=== PATIENT | male | born 1960 | race Caucasian/White ===

== ENCOUNTER 2017-02-25 12:37 | Emergency (ER) | payer MEDICAID, SELFPAY | END 2017-02-25 13:36 | disposition home or self-care (01) | PROVIDERS: Emergency Provider Emergency Medicine; Family Provider Family Medicine; Visit Provider Emergency Medicine | DX: S80.11XA Contusion of right lower leg, initial encounter (principal); W22.8XXA Striking against or struck by other objects, initial encounter; Y92.89 Other specified places as the place of occurrence of the external cause; Z79.82 Long term (current) use of aspirin; F17.210 Nicotine dependence, cigarettes, uncomplicated; I10 Essential (primary) hypertension | CPT/HCPCS: 73590; 99282 ==

== ENCOUNTER → 2017-09-24 06:46 | Outpatient (CLI) | payer MEDICAID, SELFPAY ==
--- NOTE | 2017-09-24 06:48 | NM_ITS ---
History and Indications: Hypertension, diabetes, hyperlipidemia, tobacco use, chest pain and shortness of breath Procedure: Patient exercised on Steve protocol 6 minutes and 30 seconds, resting heart rate was 61 bpm, resting blood pressure 111/74, with exercise maximum heart rate achieved was 118 bpm which is equal to 72% of the maximum predicted heart rate and a blood pressure was 145/72. Test was started due to shortness of breath patient denied any complained of chest pain. Patient has adequate exercise capacity achieved 7mets of workload on treadmill, the blood pressure response to exercise was adequate, patient did not achieve the target heart rate. Electrocardiogram: Resting electrocardiogram showed sinus rhythm, with exercise there is less than 1.5 ST segment depression noted from the baseline EKG. The EKG portion of the exercise Myoview is nondiagnostic. Cardiac stress and resting SPECT images: Cardiac stress and rest SPECT images were obtained using technetium 99 Myoview 32.2 mCi at stress and 10.9 mCi at rest, gated SPECT further analysis of segmental wall motion and calculation of the ejection fraction also done. Cardiac stress and rest images show a fixed defect in the anterior wall with normal contractility on the gated SPECT is likely secondary to soft tissue attenuation from the diaphragm, no reversible ischemia seen. Computer derived ejection fraction is 49% with no obvious regional wall motion abnormality. Right ventricle is normal size and contractility. Conclusion: 1. The EKG portion of the exercise Myoview is nondiagnostic as patient did not achieve the target heart rate, patient has adequate exercise capacity achieved 7mets of workload on treadmill, the blood pressure response to exercise was adequate. Test was stopped due to shortness of breath patient denied any complained of chest pain. 2. No obvious scintigraphic evidence of reversible ischemia seen, computer derived ejection fraction is 49% with no obvious regional wall motion abnormality, right ventricle is normal size and contractility.
[2017-09-24 07:26] LABS: Blood Urea Nitrogen 7 mg/dL (7-18); Creatinine,Serum 1.08 mg/dL (0.70-1.30); Estimated Glomerular Filt Rate 71 ml/min (>60); GFR (African American) 86 ML/MIN (>60)
--- NOTE | 2017-09-24 07:42 | HMH.ITSHM ---
ALPRAXOLAM AMLODIPINE PANTOPRAZOLE ATORVASTATIN ASA CARVEDILOL METFORMIN LISINOPRIL
== END ==
PROVIDERS: Family Provider Family Medicine; PCP Nurse Practitioner Family; Visit Provider Internal Medicine Cardiovascular Disease
DX: Z01.812 Encounter for preprocedural laboratory examination (principal)
CPT/HCPCS: 78452; 82565; 84520; 93017; A9502

== ENCOUNTER → 2017-09-30 12:09 | Outpatient (CLI) | payer MEDICAID, SELFPAY ==
[2017-09-30 14:06] VITALS: PULSE 78; PULSE 80
--- NOTE | 2017-09-30 14:09 | CT_ITS ---
CT chest w con HISTORY: Shortness of air, chest pain ITS.REASON: TOBACCO USE, SOB, LUNG INFLAMMATION,CP ORDERING PHYSICIAN: Aundrea Cooper PATIENT AGE: 56 years COMPARISON: 10/23/2012 TECHNIQUE: Axial images obtained following the administration of 75 mL of Isovue 370 . Sagittal, and coronal reformatted images are also generated and reviewed. All CT scans at the facility use one or more dose reduction, viz: automated exposure control, ma/kV adjustment per patient size (including targeted exams where dose is matched to indication, i.e. head), or iterative reconstruction technique. FINDINGS: Scattered small mediastinal nodes are present. There are coronary artery calcifications. There is normal heart size. No pericardial effusion apparent. No evidence of aortic aneurysm or dissection, or central pulmonary embolus There are centrilobular emphysematous changes. There is a 4 mm noncalcified nodule in the right upper lobe unchanged. 3 mm noncalcified nodule right upper lobe posteriorly unchanged. There are scattered calcified granulomas. There is coarsening of the bronchovascular markings with mild prominence of the interstitium. No suspicious pulmonary nodules are evident. Parenchymal opacity is present in the inferior aspect of the lingula laterally and may be due to an area of fibrotic change/scarring. No effusions or infiltrates. Upper abdominal images demonstrates a left adrenal mass measuring 4 x 2.6 cm not significant changed in size likely due to an adenoma. IMPRESSION: 1. Centrilobular emphysema with scattered calcified and noncalcified pulmonary nodules which are stable consistent with old granulomatous disease. No suspicious pulmonary nodules evident. 2. Coarsening of the bronchovascular markings with mild prominence of interstitium which may be related to smoking-related lung disease. 3. Left adrenal mass not significant changed. Interval stability favors adenomatous involvement
== END ==
PROVIDERS: Family Provider Family Medicine; PCP Nurse Practitioner Family; Visit Provider Nurse Practitioner Family
DX: R07.9 Chest pain, unspecified (principal); R06.02 Shortness of breath; J18.9 Pneumonia, unspecified organism; Z72.0 Tobacco use
CPT/HCPCS: 71260; 94060; 94640; 94726; 94729; Q9967

== ENCOUNTER → 2017-12-22 13:03 | Outpatient (POV) | payer MEDICAID, SELFPAY ==
--- NOTE | 2017-12-22 15:55 | XR_ITS ---
XR chest 2V HISTORY: Shortness of air ITS.REASON: COPD ORDERING PHYSICIAN: Alexey Andersen MD PATIENT AGE: 56 years COMPARISON: 09/08/2017 FINDINGS: The cardiomediastinal silhouette and pulmonary vascularity are within normal limits. There is chronic coarsening of the bronchovascular markings consistent with peribronchial inflammatory change. No lobar consolidation or collapse. No acute bony anomalies. IMPRESSION: No change chronic peribronchial inflammatory change/COPD
== END ==
LOC: SC 13:04 → RAD 15:53
PROVIDERS: Family Provider Family Medicine; PCP Nurse Practitioner Family; Visit Provider Internal Medicine
DX: J44.9 Chronic obstructive pulmonary disease, unspecified (principal)
CPT/HCPCS: 71046

== ENCOUNTER → 2018-01-28 19:50 | Outpatient (CLI) | payer MEDICAID, SELFPAY | PROVIDERS: PCP Nurse Practitioner Family; Visit Provider Nurse Practitioner Family | DX: G47.33 Obstructive sleep apnea (adult) (pediatric) (principal); I10 Essential (primary) hypertension; R06.83 Snoring; E66.9 Obesity, unspecified; J44.9 Chronic obstructive pulmonary disease, unspecified | CPT/HCPCS: 95810 ==

== ENCOUNTER 2018-02-10 09:24 | Outpatient (RCR) | payer MEDICAID, SELFPAY | END 2018-04-09 13:42 | disposition home or self-care (01) | LOC: PT 09:24 | PROVIDERS: Visit Provider Nurse Practitioner Family | DX: J44.9 Chronic obstructive pulmonary disease, unspecified (principal) | CPT/HCPCS: G0424 ==

== ENCOUNTER → 2018-03-04 08:31 | Outpatient (CLI) | payer MEDICAID, SELFPAY ==
[2018-03-04 09:32] LABS: Anion Gap 13.8 mEq/L (5-15); Blood Urea Nitrogen 9 mg/dL (7-18); Calcium 8.6 mg/dL (8.5-10.1); Carbon Dioxide 28 mmol/L (21.0-32.0); Chloride 103 mmol/L (98-107); Creatinine,Serum 1.19 mg/dL (0.70-1.30); Estimated Glomerular Filt Rate 63 ml/min (>60); GFR (African American) 77 ML/MIN (>60); Glucose 163 mg/dL (74-106); Potassium 3.8 mmoL/L (3.5-5.1); Sodium 141 mmol/L (136-145)
== END ==
PROVIDERS: Visit Provider Registered Nurse
DX: K21.9 Gastro-esophageal reflux disease without esophagitis (principal); K22.70 Barrett's esophagus without dysplasia; R13.10 Dysphagia, unspecified; Z12.11 Encounter for screening for malignant neoplasm of colon
CPT/HCPCS: 36415; 80048

== ENCOUNTER → 2018-03-23 12:50 | Outpatient (POV) | payer MEDICAID, SELFPAY | PROVIDERS: Visit Provider Internal Medicine | DX: Z00.00 Encounter for general adult medical examination without abnormal findings (principal) ==

== ENCOUNTER → 2018-08-24 12:27 | Outpatient (POV) | payer MEDICAID, SELFPAY | PROVIDERS: Visit Provider Internal Medicine | DX: Z00.00 Encounter for general adult medical examination without abnormal findings (principal) ==

== ENCOUNTER → 2018-11-15 07:52 | Outpatient (CLI) | payer MEDICAID, SELFPAY ==
--- NOTE | 2018-11-15 07:57 | CT_ITS ---
PROCEDURE: CT LUNG SCREENING CLINICAL INDICATION: CURRENT TOBACCO USE Sixty pack-year smoking history, asymptomatic for lung cancer COMPARISON: [facility] CT CHEST W/O CONTRAST from 10/23/2012 TECHNIQUE: The exam was performed on a GE Light Speed [address] scanner using 2.90 mGy CTDI. A low dose helical CT CHEST was performed on a multi-detector scanner. All CT scans at the facility use one or more dose reduction, viz: automated exposure control, ma/kV adjustment per patient size (including targeted exams where dose is matched to indication, i.e. head), or iterative reconstruction technique. The LDCT was performed in a facility that meets the criteria for the screening program. Data regarding this exam was submitted to ACR which is an approved registry. The order for this exam indicates that it came as a result of a lung cancer screening counseling shard decision-making visit that included all the elements required of such a visit including smoking cessation. The radiologist interpreting this exam meets the CMS criteria for the LDCT lung cancer screening program. The exam is reported using the Lung-RADS classification scale and reported to the ACR registry. NOTE: This study was performed for the specific purposes of lung cancer screening and is not an alternative to diagnostic chest CT. RADIATION DOSE: CTDI vol(CT dose Index-volume) = 2.90mG DLP (Dose Length Product) = 105.51 mGcm FINDINGS: There are scattered small mediastinal lymph nodes. No mediastinal or hilar adenopathy. Coronary artery calcifications are present. There is evidence of old granulomatous disease. Mild centrilobular emphysema 4 mm nodule right upper lobe axial image 26 which is somewhat hyperdense but is not calcified. Scarring is present in the lingula inferiorly. No suspicious nodules are evident. There are some small lymph nodes in the axilla. Subcutaneous nodule is present in the right posterior hemithorax in the subcutaneous region measuring 15 mm and may represent a sebaceous cyst OTHER FINDINGS: No other pertinent findings evident. IMPRESSION: Lung rads category 2 benign findings. Recommend annual LD CT Also noted are coronary artery calcifications which may indicate coronary artery disease Dictated by: Yosvany Valle MD 11/15/2018 10:29 Electronically signed by Yosvany Valle MD in [place] 11/16/2018 09:21
== END ==
PROVIDERS: PCP Nurse Practitioner Family; Visit Provider Internal Medicine
DX: Z87.891 Personal history of nicotine dependence (principal); Z12.2 Encounter for screening for malignant neoplasm of respiratory organs

== ENCOUNTER → 2018-11-16 10:32 | Outpatient (POV) | payer MEDICAID, SELFPAY | PROVIDERS: Visit Provider Internal Medicine | DX: Z00.00 Encounter for general adult medical examination without abnormal findings (principal) ==

== ENCOUNTER → 2018-11-23 10:37 | Outpatient (CLI) | payer MEDICAID, SELFPAY | PROVIDERS: PCP Nurse Practitioner Family; Visit Provider Internal Medicine | DX: R06.02 Shortness of breath (principal); J44.9 Chronic obstructive pulmonary disease, unspecified | CPT/HCPCS: 94060; 94618; 94726; 94729 ==

== ENCOUNTER → 2019-01-17 09:31 | Outpatient (CLI) | payer MEDICAID, SELFPAY ==
--- NOTE | 2019-01-17 09:33 | US_ITS ---
APPROVED REPORT Exam Type: Lower Extremity Segmental Pressures Greensman: Allegra Brock RDCS Indications Claudication: Rest Pain: Numbness/Tingling Current Smoker History of Smoking Pressures/Indices Right Indices Left Indices Brachial 132.00 mmHg Brachial 136.00 mmHg Low Thigh 125.00 mmHg 0.92 Low Thigh 148.00 mmHg 1.09 Calf 115.00 mmHg 0.85 Calf 143.00 mmHg 1.05 Ankle(PT) 121.00 mmHg 0.89 Ankle(PT) 149.00 mmHg 1.10 Ankle(DP) 123.00 mmHg 0.90 Ankle(DP) 140.00 mmHg 1.03 Digit 97.00 mmHg 0.71 Digit 93.00 mmHg 0.68 Findings R IVANA .9 L IVANA 1.1 R TBI .7 L TBI .7 NORMAL PULSES AND WAVEFORMS Conclusion No evidence significant arterial disease throughout the right and left lower extremities as evidenced by normal resting PVR waveforms and normal resting indices. Electronically signed by : Yosvany Valle MD 01/17/2019 17:59:01
== END ==
PROVIDERS: PCP Family Medicine; Visit Provider Physician Assistant
DX: I73.9 Peripheral vascular disease, unspecified (principal); M79.604 Pain in right leg; M79.605 Pain in left leg
CPT/HCPCS: 93923

== ENCOUNTER → 2019-05-09 12:43 | Outpatient (POV) | payer MEDICAID, SELFPAY | PROVIDERS: PCP Internal Medicine Nephrology; Visit Provider Family Medicine | DX: Z00.00 Encounter for general adult medical examination without abnormal findings (principal) ==

== ENCOUNTER → 2019-07-21 11:07 | Outpatient (CLI) | payer MEDICAID, SELFPAY ==
[2019-07-21 13:40] LABS: Amphetamine/Metha Screen,Urine Negative ng/ml (<1000)
[2019-07-21 13:41] LABS: Barbiturates Screen,Urine Negative ng/ml (<200)
[2019-07-21 13:42] LABS: Benzodiazepines Screen,Urine Negative ng/ml (<200); Cannabinoid Screen,Urine Negative ng/ml (<50)
[2019-07-21 13:44] LABS: Cocaine Screen,Urine Negative ng/ml (<300)
[2019-07-21 13:45] LABS: Methadone Screen,Urine Negative ng/ml (<300); Opiate Screen,Urine Negative ng/ml (<300)
[2019-07-21 13:46] LABS: Phencyclidine Screen,Urine Negative ng/ml (<25)
== END ==
PROVIDERS: Visit Provider Internal Medicine
DX: F11.90 Opioid use, unspecified, uncomplicated (principal)
CPT/HCPCS: 80305

== ENCOUNTER → 2020-01-25 08:51 | Outpatient (CLI) | payer MEDICAID, SELFPAY ==
--- NOTE | 2020-01-25 08:57 | CA_ITS ---
APPROVED REPORT Bilateral Lower Extremity Venous Study for DVT. Billet Worker: JOLEEN CarlT Indications Lower Extremity Pain: Bilateral Current Smoker DISCOLORATION OF THE BILATERAL LE'S Risk Factors Current Smoker Medications Aspirin Vein Imaging CFV (R): compressive, spontaneous, phasic, augmentation FEM (R): compressive, spontaneous, phasic, augmentation POP (R): compressive, spontaneous, phasic, augmentation PTV (R): Compressible GSV (R): Compressible Peroneals (R):Compressible GAS (R): Compressible CFV (L): compressive, spontaneous, phasic, augmentation FEM (L): compressive, spontaneous, phasic, augmentation POP (L): compressive, spontaneous, phasic, augmentation PTV (L): Compressible GSV (L): Compressible Peroneals (L):Compressible GAS (L): Compressible Findings Study suggests no evidence of DVT of the bilateral lower extremites. Study suggests no evidence of SVT of the bilateral lower extremities. Conclusion Study suggests no evidence of DVT of the bilateral lower extremites. Study suggests no evidence of SVT of the bilateral lower extremities. Electronically signed by : Yosvany Valle MD 01/25/2020 15:12:18
== END ==
PROVIDERS: PCP Family Medicine; Visit Provider Nurse Practitioner Family
DX: L81.9 Disorder of pigmentation, unspecified (principal); I73.9 Peripheral vascular disease, unspecified
CPT/HCPCS: 93970

== ENCOUNTER → 2020-06-14 12:40 | Outpatient (CLI) | payer MEDICAID, SELFPAY ==
--- NOTE | 2020-06-14 14:10 | CT_ITS ---
PROCEDURE: CT LUNG SCREENING CLINICAL INDICATION: LDCT Current smoker 50 pack year smoking history Copd, emphysema Prior 11/15/18 COMPARISON: CT ABDPELW/WO CT ABD PELVIS W/WO CONTRAST from 10/23/[address] LUNG SCREENING from 11/15/2018 TECHNIQUE: The exam was performed on a [employer] Light Speed [address] scanner using 2.90 mGy CTDI. A low dose helical CT CHEST was performed on a multi-detector scanner. All CT scans at the facility use one or more dose reduction, viz: automated exposure control, ma/kV adjustment per patient size (including targeted exams where dose is matched to indication, i.e. head), or iterative reconstruction technique. The LDCT was performed in a facility that meets the criteria for the screening program. Data regarding this exam was submitted to ACR which is an approved registry. The order for this exam indicates that it came as a result of a lung cancer screening counseling shard decision-making visit that included all the elements required of such a visit including smoking cessation. The radiologist interpreting this exam meets the CMS criteria for the LDCT lung cancer screening program. The exam is reported using the Lung-RADS classification scale and reported to the ACR registry. NOTE: This study was performed for the specific purposes of lung cancer screening and is not an alternative to diagnostic chest CT. RADIATION DOSE: CTDI vol(CT dose Index-volume) = 2.90mG DLP (Dose Length Product) = 115.68 mGcm FINDINGS: COPD with centrilobular emphysema and scattered areas of scarring. There is mild prominence of the interstitium. There is old granulomatous disease. No suspicious nodules apparent. OTHER FINDINGS: Coronary artery calcifications. There is masslike enlargement of the left adrenal gland measuring -15 Hounsfield units consistent with an adenoma at 4 x 2.8 cm probably not significantly changed compared to the the previous exam. Gallstones are suspected. IMPRESSION: Lung-RADS Category 2 Benign Appearance or Behavior Follow-up: Continue annual screening with LDCT in 12 months Dictated by: Yosvany Valle MD 06/27/2020 14:49 Yosvany Valle MD in [place] 06/27/2020 14:49
== END ==
PROVIDERS: PCP Nurse Practitioner Family; Visit Provider Internal Medicine Pulmonary Disease
DX: R06.09 Other forms of dyspnea (principal); Z87.891 Personal history of nicotine dependence; Z12.2 Encounter for screening for malignant neoplasm of respiratory organs
CPT/HCPCS: 71271; 94060; 94618; 94726; 94729

== ENCOUNTER → 2020-06-19 12:44 | Outpatient (CLI) | payer MEDICAID, SELFPAY | PROVIDERS: PCP Nurse Practitioner Family; Visit Provider Internal Medicine Pulmonary Disease | DX: R06.00 Dyspnea, unspecified (principal) | CPT/HCPCS: 94762 ==

== ENCOUNTER → 2020-08-09 08:56 | Outpatient (CLI) | payer MEDICAID, SELFPAY ==
--- NOTE | 2020-08-09 | CA_ITS ---
APPROVED REPORT Exam: Exercise Treadmill Technologist: Sydnee Roca, Ht: 5 ft 8 in Wt: 225 lbs BSA: 2.15 m2 HR: 79 bpm BP: 142/83 mmHg Rhythm: NSR, 1st degree AVB Medical History Medical History: HTN, COPD, Hyperlipidemia, Diabetic ??? Noninsulin Medications: Amlodipine,,,,, Metformin,,,,, Xanax,,,,, Losartan,,,,, Carvedilol,,,,, Albuterol,,,,, Montelukast,,,,, BuPROPION,,,,, SilDENAFIL,,,,, OmeprazLE,,,,, Trelegy,,,,, Simvasatin,,,,, Cardiac Risk Factors: HTN, Hyperlipidemia, Diabetes (non-insulin), FHX of CAD, Smoking, SOB Stress Test Details Test: Steve HR Resting HR: 82 bpm Max Heart Rate (APMHR): 162.672612 bpm Max HR Achieved: 102 bpm Target HR (85% APMHR): 137.931358 bpm % of APMHR: 62.96 Recovery HR: 96 bpm BP Resting BP: 135/81 mmHg Max BP: 154/86 mmHg Recovery BP: 150.0/84.0 mmHg ECG Resting ECG: NSR, 1st degree AVB Clinical Exercise duration: 03:32 min Highest Stage Achieved: Exercise capacity: 4.6 METs Stress ECG Conclusion During steve protocol artur pt exercised total of 3:32, stopping due to pt requested of SOA and claudication. PT experinced SOA, bilateral LE claudication, NO CP. No arrhythmias or ectopy noted. Normal ST response to exercise for the HR achieved. Non-diagnostic GXT due to blunted HR response on beta anastasia and limited exercise tolerance. GXT only. Electronically signed by : Eliezer Sorto, 08/10/2020 12:44:57
== END ==
PROVIDERS: PCP Nurse Practitioner Family; Visit Provider Nurse Practitioner Family
DX: R06.00 Dyspnea, unspecified (principal)
CPT/HCPCS: 93017

== ENCOUNTER → 2020-09-25 11:10 | Outpatient (CLI) | payer MEDICAID, SELFPAY ==
--- NOTE | 2020-09-25 11:16 | XR_ITS ---
PROCEDURE: XR HIP RT 2-3V W/PELVIS CLINICAL INDICATION: SCIATICA OF RIGHT HIP COMPARISON: CT ABDPELW/WO CT ABD PELVIS W/WO CONTRAST from 10/23/2012 FINDINGS: There are minimal osteoarthritic changes of the right hip with slight decrease in the joint space and minimal osteophyte formation along the inferior acetabulum. No fracture or dislocation. No lytic or blastic change. There is an unusual triangular shaped density overlying the medial aspect the ischial ileal junction measuring approximately 19 mm. The medial aspect has a sharp margin. This is of unknown etiology. Could the patient have a piece of glass within the soft tissues in the buttock area? Atypical vascular calcification is a consideration. IMPRESSION: Minimal osteoarthritic change. Unusual triangular shaped density in the right pelvic area which could represent an atypical area of vascular calcification or a foreign body Dictated by: Yosvany Valle MD 09/25/2020 11:56 Yosvany Valle MD in [place] 09/25/2020 11:56
== END ==
PROVIDERS: PCP Nurse Practitioner Family; Visit Provider Nurse Practitioner Family
DX: M54.31 Sciatica, right side (principal)
CPT/HCPCS: 73502

== ENCOUNTER → 2020-10-22 11:27 | Outpatient (CLI) | payer MEDICAID, SELFPAY ==
--- NOTE | 2020-10-22 11:28 | CA_ITS ---
APPROVED REPORT EXAM: Comprehensive 2D, Doppler, and color-flow Echocardiogram Muskrat Trapper: Swapna Li RVT Ht: 5 ft 8 in Wt: 226lbs BSA: 2.15 BP: 162/89 mmHg Indications: SOA,COPD,FATIGUE,SMOKER,HTN,HLD,DM,ALCOHOL USE 2D Dimensions LVOT 2.31 cm (M/F) 1.5-2.5 LA Volume 24.80 mL LA Volume Index 11.53 mL/m2 (M/F) 16-34 M-Mode Dimensions RVDd 1.91 cm (0.9-2.6) LA Diam 3.77 cm (1.9-4.0) LVDd 4.28 cm (3.5-5.7) Ao Diam 3.13 cm (2.0-3.7) LVDs 2.67 cm (3.5-5.7) IVSd 1.32 cm (0.6-1.1) PWd 1.06 cm (0.6-1.1) EF (Teich) 68.00% FS 37.60% EDV (Teich) 82.20 mL TAPSE 2.47 (<1.7) ESV (Teich) 26.30 mL LV Diastology E Decel Time 240.00 (160-240 msec) E/A Ratio 0.8 MED E' 5.60 (< 7 cm/sec) E'/MED E' Ratio 10.09 (>14) LAT E' 5.60 (<10 cm/sec) E/LAT E' Ratio 10.09 (>14) Aortic Valve AO Peak GR. 4.00 mmHg Mitral Valve MV E Max Edison. 57.00 (40-130 cm/s) MV A Velocity 68.00 (40-130 cm/s) E/A Ratio 0.83 MV Decel. Time 240.00 (160-240 ms) MV PHT 70.00 ms Pulmonary Valve PV Peak Velocity 62.00 (50-150 cm/s) Tricuspid Valve TR P. Velocity 192.00 cm/s RAP Estimate 10.00 mmHg RVSP 24.70 mmHg Left Ventricle Left atrium is mildly enlarged, left ventricle is normal size, mild concentric left ventricular hypertrophy, visually estimated ejection fraction 55% with no regional wall motion abnormality, grade 1 diastolic dysfunction seen without tissue Doppler evidence of raise left atrial pressure. Right Ventricle Right atrium and right ventricle mildly enlarged with normal contractility. Aortic Valve Aortic valve is minimally thickened and fibrosed, there is no aortic stenosis or aortic insufficiency. Mitral Valve Mitral valve grossly normal, there is trace mitral regurgitation. Tricuspid Valve Tricuspid grossly normal, there is trace tricuspid regurgitation, tricuspid regurgitation jet velocity is inadequate for calculation of the right ventricular systolic pressure. Pulmonic Valve Pulmonic valve is poorly visualized. Great Vessels Aortic root is normal size. Pericardium No significant pericardial effusion noted. Conclusion 1. Mild biatrial enlargement, normal left ventricular size, mild concentric left ventricular hypertrophy, visually estimated ejection fraction 55% with no regional wall motion abnormality, grade 1 diastolic dysfunction seen without tissue Doppler evidence of raise left atrial pressure. 2. Mildly enlarged right ventricle with normal contractility. 3. Trace mitral and tricuspid regurgitation. 4. No significant pericardial effusion noted. Electronically signed by : Romulo Evangelista MD 10/22/2020 19:20:35
--- NOTE | 2020-10-22 11:28 | NM_ITS ---
APPROVED REPORT Exam: Nuclear Stress Test Indication: Chest pain, SOB, Fatigue, Obesity, HTN, DM, High cholesterol, Tobacco use, Family history Patient Location: Outpatient Stress Tech: Leyla Don NE Tech:Lauren Armstrong, ARRT, RT (R)(N) Ht: 5 ft 8 in Wt: 225 lbs HR: 79 bpm BP: 113/73 mmHg BSA: 2.15 m2 BMI: 34.2 History: Chest pain, SOB, Fatigue, Obesity, HTN, DM, High cholesterol, Tobacco use, Family history Procedure: Patient received a 0.4 mg of intravenous Lexiscan, resting heart rate 79 bpm, resting blood pressure 113/73 mmHg, with Lexiscan maximum heart rate achived was 104 bpm which is Less than 85 % of the maximum predicted heart rate and blood pressure was 126/73 mmHg. With Lexiscan, patient denied any complaint of chest pain. Electrocardiogram Resting electrocardiogram showed sinus rhythm nonspecific ST-T changes, with Lexiscan there is less than 1.[address] segment depression noted from the baseline EKG. The EKG portion of the Lexiscan is nondiagnostic. Cardiac Stress and Resting SPECT Images: Cardiac Stress and Resting SPECT images were obtained using technetium 99m Myoview 31.8 mCi stress and 10.86 mCi at rest. Patient unable to do prone images. Gated SPECT for analysis of segmental wall motion and calculation of the ejection fraction also done. Cardiac stress and resting SPECT images show a fixed defect in the inferior wall with normal contractility and gated SPECT is likely secondary to soft tissue attenuation, no reversible ischemia seen. Computer ejection fraction is 50% with no regional wall motion abnormality, right ventricle is normal size and contractility. Conclusion: 1. The EKG portion of the Lexiscan is nondiagnostic. 2. No scintigraphic evidence of reversible ischemia seen, computer derived ejection fraction 50% with no regional wall motion abnormality, right ventricle is normal size and contractility. 3. Likely normal Lexiscan Myoview study. Electronically signed by : Romulo Evangelista MD 10/23/2020 19:18:43
--- NOTE | 2020-10-22 13:23 | HMH.ITSHM ---
Current Home Medications as stated by this patient Jose Botello JR or industrial sales representative. []CARVEDILOL BUPROPION METFORMIN NMONTELUKAST ASA OMEPRAZOLE SIMVASTATIN CETIRIZINE AMLODIPINE LOSARTAN ALPRAZOLAM FENOFIBRATE SILDENAFIL TRELEGY FLUTICASONE PROAIR
--- NOTE | 2020-10-22 14:11 | CA_ITS ---
APPROVED REPORT Exam: Pharmacologic Technologist: Leyla Don, Ht: 5 ft 8 in Wt: 222 lbs BSA: 2.14 m2 HR: 79 bpm BP: 113/73 mmHg Medical History Medications: Amlodipine,,,,, Aspirin,,,,, Simvastatin,,,,, Metformin,,,,, Xanax,,,,, Losartan,,,,, Carvedilol,,,,, Albuterol,,,,, Prednisone,,,,, Singulair,,,,, Trelegy,,,,, OmPRAZOLE,,,,, Stress Test Details Test: LEXISCAN HR Resting HR: 79 bpm Max Heart Rate (APMHR): 162.884319 bpm Max HR Achieved: 104 bpm Target HR (85% APMHR): 137.182572 bpm % of APMHR: 64.20 Recovery HR: 90 bpm BP Resting BP: 113/73 mmHg Max BP: 126/73 mmHg Recovery BP: 108.0/71.0 mmHg ECG Resting ECG: NSR Clinical Reason for Termination: Completed Protocol Exercise duration: 04:03 min Highest Stage Achieved: Stress ECG Conclusion Symptoms: No CP Arrhythmias/Ectopy: No runs. (+) Occ. PVC's ST-T Changes: <1.[address] Segment changes Conclusion: Non-diagnostic Test Summary REST . . . . . . . Resting REST 07:53 . . 79 . 113/ 73 . . Stage 1 01:00 . . 100 . . . . Stage 2 01:00 . . 102 . 108/ 75 . . Stage 3 01:00 . . 99 . 126/ 73 . . Stage 4 01:00 . . 92 . 124/ 70 . . Stage 4 01:03 . . 93 . 124/ 70 . Stop exercise at 04:03 RECOVERY 01:00 . . 94 . 123/ 72 . . RECOVERY 02:00 . . 92 . 123/ 72 . . RECOVERY 03:00 . . 90 . 108/ 71 . . RECOVERY 04:00 . . 89 . 108/ 71 . . RECOVERY 04:18 . . 92 . 108/ 71 . . Electronically signed by : Romulo Evangelista MD 10/22/2020 18:08:56
== END ==
PROVIDERS: PCP Nurse Practitioner Family; Visit Provider Urology
DX: R06.09 Other forms of dyspnea (principal); R06.00 Dyspnea, unspecified; I11.9 Hypertensive heart disease without heart failure; F41.9 Anxiety disorder, unspecified; E78.5 Hyperlipidemia, unspecified; I73.9 Peripheral vascular disease, unspecified; J44.9 Chronic obstructive pulmonary disease, unspecified; E78.2 Mixed hyperlipidemia; F17.200 Nicotine dependence, unspecified, uncomplicated; Z71.6 Tobacco abuse counseling
CPT/HCPCS: 78452; 93017; 93306; A9502; J2785

== ENCOUNTER → 2021-01-28 09:50 | Outpatient (CLI) | payer MEDICAID, SELFPAY ==
[2021-01-28 09:53] LABS: Microscopic, Urine URINE MICROSCOPIC (MICROSCOPIC)
[2021-01-28 10:15] LABS: Basophils # 0.1 K/mm3 (0-0.2); Basophils % 1.2 % (0.1-2.0); Eosinophils # 0.2 K/mm3 (0.0-0.4); Eosinophils % 2.4 % (0.1-12.0); Hematocrit 42.7 % (42.0-52.0); Hemoglobin 14.1 g/dL (14.1-18.0); Lymphocytes # 1.9 K/mm3 (0.7-4.5); Lymphocytes % 30.5 % (10-50); Mean Corpuscular HGB Conc 33.1 g/dL (31.8-35.4); Mean Corpuscular Hemoglobin 32.6 pg (27.0-31.2); Mean Corpuscular Volume 98.3 fl (80-94); Mean Platelet Volume 7.5 fl (7.4-10.4); Monocytes # 0.5 K/mm3 (0.1-1.0); Monocytes % 7.5 % (1.7-9.3); Neutrophils # 3.6 K/mm3 (1.8-7.8); Neutrophils % 58.5 % (37.0-80.0); Platelet Count 355 K/mm3 (142-424); Red Blood Count 4.34 M/mm3 (4.60-6.20); Red Cell Distribution Width 13.7 % (11.5-17.5); White Blood Count 6.1 K/mm3 (4.8-10.8)
[2021-01-28 10:34] LABS: Appearance,Urine CLEAR (Clear); Bilirubin,Urine Negative (Negative); Blood, Urine Negative (Negative); Color,Urine YELLOW (Yellow); Glucose,Urine (UA) Negative (Negative); Ketones,Urine Negative (Negative); Leukocyte Esterase,Urine Negative (Negative); Nitrate,Urine Negative (Negative); Protein,Urine 1+ (Negative)
[2021-01-28 10:53] LABS: Albumin Level 4.6 g/dl (3.5-5.0); Anion Gap 12.3 mEq/L (5-15); Blood Urea Nitrogen 8 mg/dl (9-20); Calcium 8.7 mg/dl (8.4-10.2); Carbon Dioxide 35 mmol/L (22.0-30.0); Chloride 99 mmol/L (98-107); Estimated Glomerular Filt Rate 57 ml/min (>60); GFR (African American) 68 ML/MIN (>60); Glucose 119 mg/dl (74-100); Phosphorous 3.2 mg/dl (2.5-4.5); Potassium 3.3 mmoL/L (3.5-5.1); Sodium 143 mmol/L (136-145)
[2021-01-28 10:56] LABS: Creatinine,Urine Random 129 mg/dL (Not Estab.)
[2021-01-28 11:05] LABS: Intact Parathyroid Hormone 40.1 pg/mL (7.5-53.5)
[2021-01-28 11:10] LABS: 25-OH Vitamin D, Total 29.6 ng/mL (30-100)
[2021-01-28 11:15] LABS: Microalbumin/Creatinine Ratio 218.4
== END ==
PROVIDERS: Visit Provider Internal Medicine Nephrology
DX: N18.2 Chronic kidney disease, stage 2 (mild) (principal); R80.9 Proteinuria, unspecified
CPT/HCPCS: 36415; 80069; 81001; 82043; 82306; 82570; 83970; 84155; 85025

== ENCOUNTER 2021-02-04 10:25 | Emergency (ER) | payer MEDICAID, SELFPAY ==
[2021-02-04 10:27] VITALS: BP 127/80; PULSE 87; RESP 18; TEMP 36.6; O2SAT 96; BMI 34.9
--- NOTE | 2021-02-04 10:54 | HMH.EDGENADL ---
ED Disposition Clinical Impression: Foreign body of ear, right Qualifiers: Encounter type: initial encounter Qualified Code(s): T16.1XXA - Foreign body in right ear, initial encounter Disposition: Home, Self-Care Condition on Discharge: Good Additional Instructions: Avoid placing broken hearing aid in right ear, follow up with the hearing aid store to replace this. Return to ED with new or worsening symptoms, ok to take tylenol as needed for pain. Referrals: Hillary De APRN [Primary Care Provider] - - Critical Care Critical Care Time: No Attestation: On 02/04/21, the high probability of a clinically significant, sudden or life threatening deterioration of the following system(s) required my full and direct attention, intervention and personal management. The time I documented below is in addition to time spent performing reported procedures but includes the following listed in this critical care notation. Medical Decision Making - Medical Records Medical records reviewed: Yes: I reviewed the patient's medical records. - Matthew Inquiry Pt receiving controlled substance: No Vital Signs: 02/04/21 10:27 02/04/21 11:16 Temperature 97.9 F 98 F Temperature Source Oral Oral Pulse Rate 78 Pulse Rate [Left Radial] 87 Respiratory Rate 18 18 Blood Pressure 121/78 Blood Pressure [Right Arm] 127/80 Blood Pressure Mean [Right Arm] 95 Blood Pressure Position Sitting 02 Sat by Pulse Oximetry 96 Oxygen Delivery Method Room Air Room Air Medical Decision Narrative: 60 yo M with past medical history of diabetes, COPD who is presenting with a retained piece of hearing aid in his right ear. Differential diagnoses include retained foreign body, infection, tympanic membrane perforation, abrasion. Given this will include physical exam, removal of the fragmented piece of the hearing aid. Labs, imaging studies not currently indicated. Vital signs currently stable. See procedure note, was able to extract broken piece of hearing aid with blunt tipped tweezers, tympanic membrane with no evidence of perforation, no bleeding, no overt signs of infection. At this point he is safe for discharge to follow-up with his primary care physician or hearing aide store for replacement, advised patient to avoid placing this hearing aid in his right ear. Patient comfortable with this plan. General Adult HPI - General Chief complaint: Skin/Abscess/Foreign Body Stated complaint: hearing aid broke inside ear Time Seen by Provider: 02/04/21 10:54 Mode of Arrival: Ambulatory Source of Information: Patient Limitations: No Limitations Description of Symptoms (Recalled from ER Triage Doc. by RN): the end of his hearing aid came off in his right ear this morning - History of Present Illness HPI narrative: 60-year-old male with past medical history of diabetes who is presenting to the ED due to foreign body in patient's right ear. Patient wears hearing aids, states that he went to bed with his hearing aids in. This morning when he woke up part of the hearing aid had broken and was lodged in his right ear. He admits to mild pain from this along with slightly reduced hearing in the right ear. His left hearing aid is intact with no abnormalities. No other trauma, no falls, no other injuries, no other concerns. Patient has no other complaints. It appears that the part of the hearing aid that is lodged in his ear is a soft plastic piece with a small D ring for connection. - Related Data Home Medications Medication Instructions Recorded Confirmed metformin 500 mg tablet 1,000 mg PO BID tab 04/26/18 11/12/20 montelukast 10 mg tablet 10 mg PO DAILY 30 Days #30 tab 04/26/18 11/12/20 bupropion HCl 150 mg 24 hr tablet, 150 mg PO DAILY tab 05/09/19 11/12/20 extended release cetirizine 10 mg tablet 10 mg PO tab 03/27/20 11/12/20 prednisone 10 mg tablet 10 mg PO DAILY tab 10/01/20 11/12/20 fenofibrate nanocrystallized 145 145 mg PO DAILY
[2021-02-04 11:16] VITALS: BP 121/78; PULSE 78; RESP 18; TEMP 36.6; O2SAT 98
== END 2021-02-04 11:18 | disposition home or self-care (01) ==
PROVIDERS: Emergency Provider Emergency Medicine; PCP Nurse Practitioner Family
DX: T16.1XXA Foreign body in right ear, initial encounter (principal); E11.9 Type 2 diabetes mellitus without complications; J44.9 Chronic obstructive pulmonary disease, unspecified; K21.9 Gastro-esophageal reflux disease without esophagitis; F41.9 Anxiety disorder, unspecified; F17.210 Nicotine dependence, cigarettes, uncomplicated
CPT/HCPCS: 69200; 99281

== ENCOUNTER → 2021-02-04 11:20 | Outpatient (POV) | payer MEDICAID, SELFPAY | PROVIDERS: Visit Provider Internal Medicine Nephrology | DX: Z00.00 Encounter for general adult medical examination without abnormal findings (principal) ==

== ENCOUNTER → 2021-05-15 11:27 | Outpatient (CLI) | payer MEDICAID, SELFPAY | PROVIDERS: PCP Nurse Practitioner Family; Visit Provider Student in an Organized Health Care Education/Training Program | DX: Z01.812 Encounter for preprocedural laboratory examination (principal); Z11.52 Encounter for screening for COVID-19 | CPT/HCPCS: C9803; U0003; U0005 ==

== ENCOUNTER → 2021-07-24 14:28 | Outpatient (CLI) | payer MEDICAID, SELFPAY | PROVIDERS: PCP Nurse Practitioner Family; Visit Provider Internal Medicine | DX: I49.3 Ventricular premature depolarization (principal) | CPT/HCPCS: 93270 ==

== ENCOUNTER 2021-08-30 09:51 | Emergency (ER) | payer MEDICARE, MEDICAID, SELFPAY ==
--- NOTE | 2021-08-30 10:05 | HMH.EDUTC ---
[facility] [place] Disposition Clinical Impression: Encounter for laboratory testing for COVID-19 virus Disposition: Home, Self-Care Condition on Discharge: Good Instructions: Preventing the Spread of Coronavirus Discharge Instructions Additional Instructions: Drink plenty of fluids. Follow up with your regular doctor. GO TO THE ER FOR ANY WORSENING SYMPTOMS Referrals: Sydney Hager [Primary Care Provider] - Time of Disposition: 10:12 Medical Decision Making - Medical Records Medical records reviewed: No: I reviewed the patient's medical records. - Matthew Inquiry Pt receiving controlled substance: No Vital Signs: 08/30/21 10:13 08/30/21 10:16 Temperature 97.6 F 97.6 F Temperature Source Oral Pulse Rate 76 Pulse Rate [Left] 76 Respiratory Rate 16 16 Blood Pressure 145/86 H Blood Pressure [Right Arm] 145/86 H Blood Pressure Mean [Right Arm] 105 02 Sat by Pulse Oximetry 98 [facility] [place] HPI - General Stated complaint: covid test Time Seen by Provider: 08/30/21 10:05 - History of Present Illness Provider Complaint: He is here to have a covid-19 test done in preparation for an upper GI scope procedure in 3 days. He denies any symptoms. - Related Data Previous Rx's Medication Instructions Recorded albuterol sulfate 90 mcg/actuation 2 inh IH QID PRN 90 Days #8.5 g 07/24/21 aerosol inhaler budesonide-formoterol HFA 160 2 puff IH BID 90 Days #10.2 g 07/24/21 mcg-4.5 mcg/actuation aerosol inhaler carvedilol 25 mg tablet See Rx Instructions .ROUTE 08/19/21 .COMPLEX #90 tab Allergies Allergy/AdvReac Type Severity Reaction Status Date / Time lisinopril AdvReac Severe unknown Verified 08/14/21 13:49 [facility] History - Hepatitis A Screen Attestation statement:: This patient has been screened for Hepatitis A risk factors. I have reviewed the patient's past medical history: Yes Medical History: Reports:: Anxiety, Cancer, Chronic Obstructive Pulmonary Disease (COPD), Diabetes Mellitus Type 2, Gastroesophageal Reflux Disease(GERD), Hyperlipidemia, Hypertension Other Medical History: Reports: Other Comment: [place] Other Surgeries: Yes: EGD, Other Amputation: No Fractures: No Comment: cyst neck, right groin, right hand - Social History Smoking Status: Former smoker Tobacco Type: cigarettes # Packs/Day (cigarettes): 1 #Yrs smoked (if former smoker): 45 Alcohol Intake: current Alcohol Intake Frequency:: a few times a week Substance Use Type: denies use Occupational Status: employed - Psychiatric History Pschychiatric History:: Reports:: Anxiety Family Hx:: Diabetes, Cancer, Heart Attack, Hypertension, Hyperlipidemia ROS Obtained: Yes All systems reviewed & no additional complaints - Constitutional Constitutional: Reports system reviewed and no additional complaints, except as docu - Eyes Eyes: Reports system reviewed and no additional complaints, except as docu - ENT Ears, Nose, Mouth, and Throat: Reports system reviewed and no additional complaints, except as docu - Cardiovascular Cardiovascular: Reports system reviewed and no additional complaints, except as docu - Respiratory Respiratory: Reports system reviewed and no additional complaints, except as docu - Gastrointestinal Gastrointestingal: Reports: system reviewed and no additional complaints, except as docu - Musculoskeletal Musculoskeletal: Reports system reviewed and no additional complaints, except as docu - Integumentary/Breasts Skin/Breast: Reports system reviewed and no additional complaints, except as docu Physical Exam - General General appearance: alert, in no apparent distress - Head Head exam: atraumatic, normocephalic, normal inspection - Eye Eye exam: Present: normal appearance, PERRL, EOMI - ENT ENT exam: Present: normal exam, normal oropharynx, mucous membranes moist, TM's normal bilaterally, normal external ear exam - Neck Neck exam: Present: normal inspection, full ROM, trachea midlin
[2021-08-30 10:13] VITALS: BP 145/86; PULSE 76; RESP 16; TEMP 36.4; O2SAT 98; BMI 27.3
[2021-08-30 10:16] VITALS: BP 145/86; PULSE 76; RESP 16; TEMP 36.4
== END 2021-08-30 10:17 | disposition home or self-care (01) ==
PROVIDERS: Emergency Provider Nurse Practitioner Family; PCP Nurse Practitioner Family
DX: Z20.822 Contact with and (suspected) exposure to COVID-19 (principal)
CPT/HCPCS: 99212; C9803; G0463; U0003; U0005

== ENCOUNTER 2021-10-27 10:45 | Emergency (ER) | payer MEDICARE, MEDICAID, SELFPAY ==
[2021-10-27 11:11] VITALS: BP 0/0; PULSE 0; RESP 0; TEMP -17.7; TEMP 0; O2SAT 0
== END 2021-10-27 11:11 | disposition left against medical advice (07) ==
LOC: ER 11:53
PROVIDERS: Emergency Provider Emergency Medicine; PCP Nurse Practitioner Family
DX: T16.9XXA Foreign body in ear, unspecified ear, initial encounter (principal); Z53.21 Procedure and treatment not carried out due to patient leaving prior to being seen by health care provider; M79.605 Pain in left leg; M79.604 Pain in right leg; I20.9 Angina pectoris, unspecified; I49.3 Ventricular premature depolarization; N52.9 Male erectile dysfunction, unspecified; G47.30 Sleep apnea, unspecified; J43.9 Emphysema, unspecified; F41.9 Anxiety disorder, unspecified; F17.210 Nicotine dependence, cigarettes, uncomplicated; Z79.51 Long term (current) use of inhaled steroids; Z79.899 Other long term (current) drug therapy; Z88.8 Allergy status to other drugs, medicaments and biological substances; Z71.6 Tobacco abuse counseling
CPT/HCPCS: 99211

== ENCOUNTER 2022-01-25 12:00 | Emergency (ER) | payer MEDICARE, MEDICAID, SELFPAY ==
[2022-01-25] VITALS (12 sets, daily range): BP systolic 120–164; BP diastolic 78–96; PULSE 7–82; RESP 16–20; TEMP 36.5–36.8; O2SAT 92–96; BMI 37.6; BMI 37.5
--- NOTE | 2022-01-25 12:04 | CT_ITS ---
PROCEDURE INFORMATION: Exam: CT Head Without Contrast Exam date and time: 01/25/2022 12:09 PM Age: 61 years old Clinical indication: Injury or trauma; Fall; Blunt trauma (contusions or hematomas); With loss of consciousness; Loss of consciousness for 30 minutes or less; Additional info: Fall, loc TECHNIQUE: Imaging protocol: Computed tomography of the head without contrast. Radiation optimization: All CT scans at this facility use at least one of these dose optimization techniques: automated exposure control; mA and/or kV adjustment per patient size (includes targeted exams where dose is matched to clinical indication); or iterative reconstruction. COMPARISON: No relevant prior studies available. FINDINGS: Brain: Normal. No hemorrhage. Unremarkable white matter. No mass effect. Cerebral ventricles: No ventriculomegaly. Paranasal sinuses: Mild mucosal thickening within the ethmoid air cells, bilateral maxillary sinuses, and right sphenoid sinus. Mastoid air cells: The mastoid air cells are clear. Bones/joints: Unremarkable. No acute fracture. Soft tissues: Mild soft tissue swelling overlying the occipital bone. IMPRESSION: Mild soft tissue swelling overlying the occipital bone. No acute fracture or acute intracranial abnormality.
--- NOTE | 2022-01-25 12:04 | CT_ITS ---
PROCEDURE INFORMATION: Exam: CT Cervical Spine Without Contrast Exam date and time: 01/25/2022 12:11 PM Age: 61 years old Clinical indication: Injury or trauma; Fall; Blunt trauma; Additional info: Fall, loc TECHNIQUE: Imaging protocol: Computed tomography of the cervical spine without contrast. Radiation optimization: All CT scans at this facility use at least one of these dose optimization techniques: automated exposure control; mA and/or kV adjustment per patient size (includes targeted exams where dose is matched to clinical indication); or iterative reconstruction. COMPARISON: CT HEAD/BRAIN WO CON 01/25/2022 12:09 PM FINDINGS: Bones/joints: The craniocervical junction is intact. No acute cervical spine fracture. Grossly normal alignment of the cervical spine. [id number] multilevel degenerative disc disease of cervical spine. Brain: Limited view of the lower brain appears grossly normal. Lungs: Limited view of the lung apices is clear. Soft tissues: No abnormal soft tissue thickening surrounding the cervical spine. IMPRESSION: No acute cervical spine fracture. No abnormal soft tissue thickening surrounding the cervical spine. Grossly normal alignment of the cervical spine.
--- NOTE | 2022-01-25 12:04 | XR_ITS ---
PROCEDURE INFORMATION: Exam: XR Chest Exam date and time: 01/25/2022 12:26 PM Age: 61 years old Clinical indication: Injury or trauma; Fall; Blunt trauma (contusions or hematomas); Additional info: Cough, fall TECHNIQUE: Imaging protocol: Radiologic exam of the chest. Views: 1 view. COMPARISON: CHESTW CT chest w con 09/30/2017 2:26 PM FINDINGS: Lungs: Unremarkable. No consolidation. Pleural spaces: Unremarkable. No pleural effusion. No pneumothorax. Heart/Mediastinum: Aortic atherosclerosis. No cardiomegaly. Bones/joints: Unremarkable. No acute fracture. IMPRESSION: No acute findings.
--- NOTE | 2022-01-25 12:06 | PC.NURSE ---
rad notified of orders on pt
--- NOTE | 2022-01-25 12:08 | PC.NURSE ---
pt gone to rad
--- NOTE | 2022-01-25 12:19 | PC.NURSE ---
pt back from rad
--- NOTE | 2022-01-25 12:39 | HMH.EDGENADL ---
Discharge Plan Disposition Patient Disposition: Home, Self-Care Condition: Good Prescriptions Prescriptions: New Paxlovid (EUA) 300 mg (150 mg x 2)-100 mg tablets,dose pack See Rx Instructions .Route .COMPLEX Qty: 30 0RF Rx Instructions: take TWO 150 mg tablets of nirmatrelvir with ONE 100 mg tablet of ritonavir twice daily for 5 days No Action albuterol sulfate 90 mcg/actuation HFA aerosol inhaler 2 inh IH QID PRN (Reason: shortness of breath or wheezing) 90 Days Qty: 8.5 2RF budesonide-formoterol 160-4.5 mcg/actuation HFA aerosol inhaler 2 puff IH BID 90 Days Qty: 10.2 3RF carvedilol 25 mg tablet See Rx Instructions .ROUTE .COMPLEX Qty: 90 2RF Dose Instruction: TAKE 1 & 1/2 TABLETS BY MOUTH 2 TIMES A DAY Rx Instructions: TAKE 1 & 1/2 TABLETS BY MOUTH 2 TIMES A DAY Referrals Follow up/Referrals: Sydney Hager [Primary Care Provider] - See instructions Activity Restrictions/Add. Instructions Additional Instructions/Restrictions: Paxlovid for COVID. Follow-up with primary care provider, call for appointment. ADDITIONAL INSTRUCTIONS FOR COVID-19: Rest, drink plenty of fluids. Tylenol or Ibuprofen for fever and/or aches and pains. Monitor your symptoms. IF YOU HAVE AN EMERGENCY WARNING SIGN (INCLUDING TROUBLE BREATHING), SEEK EMERGENCY MEDICAL CARE IMMEDIATELY. COVID-19 Isolation: People with COVID-19 should isolate for 5 days. Then if they are asymptomatic (no symptoms) or their symptoms are resolving (without fever for 24 hours), follow that by 5 days of wearing a mask when around others to minimize the risk of infecting people you encounter. If you test positive for COVID-19 and never develop symptoms, day 0 is the day of your positive viral test (based on the date you were tested) and day 1 is the first full day after your positive test. If you develop symptoms after testing positive, your 5-day isolation period must start over. Day 0 is your first day of symptoms. Day 1 is the first full day after your symptoms developed. What to do: Stay in a separate room from other household members, if possible. Use a separate bathroom, if possible. Avoid contact with other members of the household and pets. Don?t share personal household items, like cups, towels, and utensils. Wear a mask when around other people if able. Clinical Impressions Clinical Impression: Syncope and collapse, COVID-19 virus infection Instructions Patient Instructions: DI for Syncope in Adults (Fainting), DI for COVID-19 (Suspected or Confirmed ) Discharge ED Provider: Joseph Casillas General Adult HPI General Chief complaint: Fall Stated complaint: Vomiting Time Seen by Provider: 01/25/22 12:00 History of Present Illness HPI narrative: Brought in by ambulance. Patient says that he passed out and hit his head. Says that he has been sick for the past couple of days with flu symptoms. He has had headaches, generalized body aches, cough, feels feverish. He says he was holding the door open for somebody today when he passed out, fell backwards, and hit the back of his head. Denies any other injuries. Denies neck pain. Denies any preceding chest pain or shortness of breath. History of syncope once several years ago. EMS reports that the patient had an episode for several minutes during transport where he was poorly responsive, but now has returned to normal. He had vomiting during transport as well. Related Data Previous Rx's Medication Instructions Recorded albuterol sulfate 90 mcg/actuation 2 inh inhalation QID PRN shortness 07/24/21 aerosol inhaler of breath or wheezing 90 days #8.5 grams budesonide-formoterol HFA 160 2 puff inhalation BID 90 days 07/24/21 mcg-4.5 mcg/actuation aerosol #10.2 grams inhaler carvedilol 25 mg tablet See Rx Instructions .Route 11/20/21 .COMPLEX #90 tabs nirmatrelvir 300 mg (150 mg See Rx Instructions .Route 01/25/22 x2)-ritonavir 100 mg t
[2022-01-25 12:52] LABS: Basophils % 0.7 % (0.1-2.0); Eosinophils % 0.2 % (0.1-12.0); Hematocrit 43.9 % (42.0-52.0); Hemoglobin 13.5 g/dL (14.1-18.0); Lymphocytes # 0.7 K/mm3 (0.7-4.5); Lymphocytes % 16.5 % (10-50); Mean Corpuscular HGB Conc 30.7 g/dL (31.8-35.4); Mean Corpuscular Hemoglobin 30.3 pg (27.0-31.2); Mean Corpuscular Volume 98.9 fl (80-94); Monocytes # 0.4 K/mm3 (0.1-1.0); Monocytes % 8.3 % (1.7-9.3); Neutrophils # 3.1 K/mm3 (1.8-7.8); Neutrophils % 74.1 % (37.0-80.0); Platelet Count 177 K/mm3 (142-424); Red Blood Count 4.44 M/mm3 (4.60-6.20); Red Cell Distribution Width 13.9 % (11.5-17.5); White Blood Count 4.2 K/mm3 (4.8-10.8)
[2022-01-25 12:53] LABS: Chloride 103 mmol/L (98-107)
[2022-01-25 12:54] LABS: Potassium 3.8 mmoL/L (3.5-5.1); Sodium 141 mmol/L (136-145)
[2022-01-25 12:56] LABS: Alanine Aminotransferase 20 U/L (12-78); Aspartate Amino Transferase 24 U/L (17-59)
[2022-01-25 12:57] LABS: Albumin Level 4.3 g/dl (3.5-5.0); Albumin/Globulin Ratio 1.5 (1.1-1.8); Alkaline Phosphatase 76 U/L (38-126); Anion Gap 12.8 mEq/L (5-15); Bilirubin,Total 1.6 mg/dl (0.2-1.3); Calcium 9.1 mg/dl (8.4-10.2); Carbon Dioxide 29 mmol/L (22.0-30.0); Globulin 2.8 g/dL (1.3-3.2); Glucose 120 mg/dl (74-100); Lactic Acid 1.1 mmol/L (0.7-2.1); Total Protein,Serum 7.1 g/dl (6.3-8.2)
[2022-01-25 13:02] LABS: Creatinine Clearance Estimated 121 mL/min (50-200); Estimated Glomerular Filt Rate 76 ml/min (>60); GFR (African American) 92 ML/MIN (>60)
--- NOTE | 2022-01-25 13:17 | ECG_ITS ---
APPROVED REPORT Exam: Resting ECG HR:72 bpm ECG Measurements Heart Rate 72 AXES DC 182 P 21 QRSd 88 QRS 32 QT 381 T 42 QTc 405 Conclusion SINUS RHYTHM NORMAL ECG UNCONFIRMED REPORT Electronically signed by : Renny Clark MD 01/27/2022 21:12:56
[2022-01-25 13:23] LABS: Blood Urea Nitrogen 11 mg/dl (9-20)
[2022-01-25 13:25] LABS: Influenza A, PCR Not Detected (NotDetected); Influenza B, PCR Not Detected (NotDetected)
[2022-01-25 13:54] LABS: Coronavirus 19, PCR Detected (NotDetected)
[2022-01-25 13:59] LABS: Troponin I < 0.01 ng/ml (0.00-0.034)
--- NOTE | 2022-01-25 14:25 | CT_ITS ---
PROCEDURE INFORMATION: Exam: CTA Chest With Contrast Exam date and time: 01/25/2022 3:42 PM Age: 61 years old Clinical indication: Other: Syncope; Additional info: Syncope, covid +, R/O pe TECHNIQUE: Imaging protocol: Computed tomographic angiography of the chest with contrast. 3D rendering (Not supervised by radiologist): MIP and/or 3D reconstructed images were created by the technologist. Radiation optimization: All CT scans at this facility use at least one of these dose optimization techniques: automated exposure control; mA and/or kV adjustment per patient size (includes targeted exams where dose is matched to clinical indication); or iterative reconstruction. Contrast material: ISOVUE 370; Contrast volume: 70 ml; Contrast route: INTRAVENOUS (IV); COMPARISON: CHESTW CT chest w con 09/30/2017 2:26 PM FINDINGS: Pulmonary arteries: Normal. No pulmonary emboli. Aorta: See Heart finding. Lungs: Unremarkable. No consolidation. No masses. Pleural spaces: Unremarkable. No pneumothorax. No pleural effusion. Heart: Coronary artery and aortic atherosclerosis. No aneurysm. Mediastinal space: Postsurgical changes of distal esophagectomy with gastric pull-through. No abnormal soft tissue mass is identified in the surgical bed. Lymph nodes: Multiple subcentimeter mediastinal lymph nodes, too small to be considered pathologic by CT size criteria. Gallbladder and bile ducts: Cholelithiasis without inflammatory changes. Adrenal glands: Stable 4.0 x 2.6 cm Left adrenal mass not significantly changed compared to CT 09/30/2017. Bones/joints: Unremarkable. No acute fracture. Soft tissues: No significant abnormality. IMPRESSION: 1. No pulmonary embolism. The lungs are clear. 2. Postsurgical changes of distal esophagectomy with gastric pull-through. No abnormal soft tissue mass is identified in the surgical bed. No findings to suggest recurrent or metastatic disease. 3. Cholelithiasis without inflammatory changes. 4. Stable 4.0 x 2.6 cm Left adrenal mass not significantly changed compared to CT 09/30/2017.
--- NOTE | 2022-01-25 14:34 | PC.NURSE ---
ER update pt on POC (CTA)
--- NOTE | 2022-01-25 16:25 | PC.NURSE ---
checked on pt at this time, states no needs
== END 2022-01-25 17:01 | disposition home or self-care (01) ==
PROVIDERS: Emergency Provider Emergency Medicine; PCP Nurse Practitioner Family
DX: U07.1 COVID-19 (principal); R55 Syncope and collapse; S09.8XXA Other specified injuries of head, initial encounter; W18.39XA Other fall on same level, initial encounter; Z88.8 Allergy status to other drugs, medicaments and biological substances; J44.9 Chronic obstructive pulmonary disease, unspecified; I73.9 Peripheral vascular disease, unspecified; F41.9 Anxiety disorder, unspecified; F19.11 Other psychoactive substance abuse, in remission; N52.9 Male erectile dysfunction, unspecified
CPT/HCPCS: 70450; 71045; 71275; 72125; 80053; 83605; 84484; 85025; 87040; 93005; 99285; C9803; Q9967; U0003; U0005

== ENCOUNTER → 2022-02-03 09:43 | Outpatient (POV) | payer MEDICAID, MEDICARE, SELFPAY | PROVIDERS: Visit Provider Internal Medicine Nephrology | DX: Z00.00 Encounter for general adult medical examination without abnormal findings (principal) ==

== ENCOUNTER → 2022-09-03 12:48 | Outpatient (CLI) | payer MEDICARE, MEDICAID, SELFPAY ==
--- NOTE | 2022-09-03 12:54 | MR_ITS ---
FINAL REPORT CLINICAL HISTORY: PAIN OF LEFT SHOULDER JOINT LIMITED ROM FINDINGS: Multiplanar MR imaging of the left shoulder was performed without contrast. A focal full-thickness tear is seen at the anterior footprint of the supraspinatus tendon. The tear measures 10 mm AP. There is a partial-thickness articular surface tear of the distal subscapularis tendon involving less than 50% of the thickness of the tendon. There is mild AC joint arthrosis. A small amount of fluid is seen in the subacromial/subdeltoid bursa. The glenoid labrum is intact. The long head of the biceps tendon is intact. A small glenohumeral joint effusion is seen. There is no evidence of fracture or dislocation. The musculature is intact. There is thickening of the joint capsule at the axillary recess worrisome for adhesive capsulitis. IMPRESSION: Focal full-thickness tear of the anterior footprint of the supraspinatus tendon. Small partial-thickness articular surface tear of the distal subscapularis tendon. Findings worrisome for adhesive capsulitis. Authenticated and ERN
== END ==
PROVIDERS: PCP Nurse Practitioner Family; Visit Provider Nurse Practitioner Family
DX: M25.512 Pain in left shoulder (principal)
CPT/HCPCS: 73221

== ENCOUNTER 2022-11-26 08:00 | Outpatient (RCR) | payer MEDICARE, MEDICAID, SELFPAY | END 2022-11-26 08:05 | disposition home or self-care (01) | LOC: PT 08:00 | PROVIDERS: PCP Nurse Practitioner Family; Visit Provider Orthopaedic Surgery Sports Medicine | DX: M19.011 Primary osteoarthritis, right shoulder (principal); M75.01 Adhesive capsulitis of right shoulder; M75.02 Adhesive capsulitis of left shoulder | CPT/HCPCS: 97010; 97014; 97110; 97112; 97140; 97163; 97164; 97530; G0283 ==

== ENCOUNTER → 2023-02-25 10:47 | Outpatient (CLI) | payer MEDICARE, MEDICAID, SELFPAY ==
--- NOTE | 2023-02-25 10:47 | CA_ITS ---
APPROVED REPORT EXAM: Comprehensive 2D, Doppler, and color-flow Echocardiogram Scrap Drop Engineer: Swapna Li RVT Ht: 5 ft 8 in Wt: 185lbs BSA: 1.98 BP: 167/96 mmHg Indications: SOA,COPD,SMOKER,HTN,HLD,DM 2D Dimensions LA Volume 47.60 mL LA Volume Index 24.04 mL/m2 (M/F) 16-34 M-Mode Dimensions RVDd 3.09 cm (0.9-2.6) LA Diam 3.15 cm (1.9-4.0) LVDd 4.41 cm (3.5-5.7) LVDs 2.80 cm (3.5-5.7) IVSd 0.89 cm (0.6-1.1) PWd 0.64 cm (0.6-1.1) EF (Teich) 66.40% FS 36.50% EDV (Teich) 88.20 mL TAPSE 2.68 (<1.7) ESV (Teich) 29.60 mL LV Diastology E Decel Time 193 (160-240 msec) E/A Ratio 1.1 MED A' 9.70 cm/s LAT A' 12.20 cm/s Aortic Valve COLLEEN Index 1.39 cm2/m2 AoV Peak Edison. 118.0 (50-130 cm/s) AO Peak GR. 5.60 mmHg AO Mean GR. 3.10 (<5 mmHg) AO VTI 24.3 (18-25 cm) COLLEEN (VTI) 2.82 (2.5-4.5 cm2) Mitral Valve MV E Max Edison. 62.0 (40-130 cm/s) MV A Velocity 57.0 (40-130 cm/s) E/A Ratio 1.08 MV PHT 57.0 ms Pulmonary Valve PV Peak Velocity 66.0 (50-150 cm/s) Tricuspid Valve TR P. Velocity 169.00 cm/s RAP Estimate 10.00 mmHg RVSP 21.40 mmHg Left Ventricle The left ventricle is normal size. The left ventricular systolic function is normal. The left ventricular ejection fraction is within the normal range. There is increased LV wall thickness. There is normal LV segmental wall motion. The left ventricular diastolic function is normal. LVEF is 55%. Right Ventricle The right ventricle is normal size. The right ventricular systolic function is normal. Atria The left atrium size is normal. There is no Doppler evidence of interatrial shunt. Aortic Valve The aortic valve opens well. There is no aortic valvular stenosis. No aortic regurgitation is present. Mitral Valve The mitral valve is normal in structure. No evidence of mitral valve stenosis. Trace mitral regurgitation. Tricuspid Valve The tricuspid valve leaflets are thin and pliable. Trace tricuspid regurgitation. There is insufficient TR jet to estimate RVSP. Pulmonic Valve The pulmonary valve is normal in structure. Trace pulmonic regurgitation. Great Vessels The aortic root is normal in size. The ascending aorta is normal in size. IVC is normal in size and collapses >50% with inspiration. Pericardium There is no pericardial effusion. Other Information Study Quality: Fair Conclusion Normal biventricular systolic function. No significant valvular stenosis or regurgitation. Electronically signed by : Karine Morrison MD 02/26/2023 09:16:36
== END ==
LOC: RT 10:47
PROVIDERS: PCP Nurse Practitioner Family; Visit Provider Physician Assistant
DX: R06.00 Dyspnea, unspecified; I11.9 Hypertensive heart disease without heart failure
CPT/HCPCS: 93306

== ENCOUNTER 2023-09-16 11:47 | Emergency (ER) | payer MEDICARE, MEDICAID, SELFPAY ==
[2023-09-16 11:48] VITALS: BP 164/95; PULSE 101; RESP 16; TEMP 36.9; O2SAT 96; BMI 27.6
--- NOTE | 2023-09-16 11:49 | HMH.EDGENADL ---
Discharge Plan Disposition Patient Disposition: Home, Self-Care Condition: Good Prescriptions Prescriptions: New levofloxacin 750 mg tablet 750 mg PO DAILY 10 Days Qty: 10 0RF prednisone 50 mg tablet 50 mg PO DAILY 5 Days Qty: 5 0RF No Action clonidine HCl 0.1 mg tablet 0.1 mg PO DIRECTED PRN Patient Comments: Take 2 tablets by mouth once daily as needed for SBP >170 losartan 50 mg tablet 50 mg PO BID Qty: 60 3RF amlodipine 5 mg tablet 5 mg PO DAILY Patient Comments: Take 1 tablet every day by oral route, for BP. metoclopramide HCl 10 mg tablet 5 mg PO QID Patient Comments: TAKE 1/2 TABLET BY MOUTH THREE TIMES DAILY albuterol sulfate 90 mcg/actuation HFA aerosol inhaler 2 inh IH QID PRN (Reason: shortness of breath or wheezing) 90 Days Qty: 8.5 2RF budesonide-formoterol 160-4.5 mcg/actuation HFA aerosol inhaler 2 puff IH BID 90 Days Qty: 10.2 3RF aspirin 81 mg tablet,delayed release (DR/EC) 81 mg PO ONCE carvedilol 25 mg tablet 25 mg PO BID Qty: 180 3RF Referrals Follow up/Referrals: Sydney Hager [Primary Care Provider] - See instructions Activity Restrictions/Add. Instructions Additional Instructions/Restrictions: I have prescribed additional antibiotics as well as a course of steroids. It appears that your symptoms are due to a COPD exacerbation based off your symptoms and time course of your symptoms as well as your labs. Please follow-up with your primary care doctor. Please return with any new or worsening symptoms. Please use your home inhaler as needed. Clinical Impressions Clinical Impression: Acute exacerbation of chronic obstructive pulmonary disease Instructions Patient Instructions: DI for Diarrhea and Traveler's Diarrhea -- Adult, DI for Diarrhea and Traveler's Diarrhea -- Child, DI for Nausea -- Adult, DI for Nausea -- Child Discharge ED Provider: Roberto Madrigal General Adult HPI General Chief complaint: Nausea/Vomiting/Diarrhea Stated complaint: coough, chills, vomitting Time Seen by Provider: 09/16/23 11:49 History of Present Illness HPI narrative: The patient presents to the emergency department with a chief complaint of concerns for worsening pneumonia. He reports having symptoms of vomiting, difficulty breathing, fever, and cough for over a month. The patient was diagnosed with pneumonia on the of the month by his primary care physician and was prescribed antibiotics, but he does not recall the name of the medication. He states that his condition has not improved since starting the antibiotics. The patient has a history of cancer and COPD. He was previously on oxygen therapy but was taken off of it. He reports feeling short of breath today. The patient denies being prescribed steroids or any other medications in addition to the antibiotics for his pneumonia. He denies any leg pain, leg swelling, has history of esophageal cancer that is nonmalignant with no active chemotherapy or immunocompromise. No blood thinner usage. No history of pulmonary embolism. No hemoptysis. No history of DVT or PE. The patient mentions that he has been around sick individuals recently, including his granddaughter who had strep throat. He was tested for strep, but the result was negative. He also had a lung x-ray performed by his primary care physician. Please note that above description of symptoms, in this electronic medical record under categorization of recalled from ER triage doctor by RN are reflective of an initial nursing assessment, however, is not reflective of my full history and physical exam that was personally taken and clarified. Consequentially, this preceding description of symptoms, which may include the patient's categorized chief complaint in the EMR, do not reflect my personal clinical impression, and the ultimate description of history of present illness and patient stated complaints should be deferred to this section of the note. Unless stated otherwise or congruent with this section of the note, additional signs, symptoms, or incongruence should be interpreted as inaccurate with my clinical impression. Related Data Home Medications Medication Instructions Recorded Confirmed aspirin 81 mg tablet,delayed 81 mg PO ONCE 02/13/22 08/19/23 release clonidine HCl 0.1 mg tablet 0.1 mg PO DIRECTED PRN 02/17/23 08/19/23 amlodipine 5 mg tablet 5 mg PO DAILY 08/19/23 08/19/23 metoclopramide HCl 10 mg tablet 5 mg PO QID 08/19/23 08/19/23 Previous Rx's Medication Instructions Recorded albuterol sulfate 90 mcg/actuation 2 inh inhalation QID PRN shortness 07/24/21 aerosol inhaler of breath or wheezing 90 days #8.5 grams budesonide-formoterol HFA 160 2 puff inhalation BID 90 days 07/24/21 mcg-4.5 mcg/actuation aerosol #10.2 grams inhaler carvedilol 25 mg tablet 25 mg PO BID #180 tabs 02/13/22 losartan 50 mg tablet 50 mg PO BID #60 tabs 02/17/23 levofloxacin 750 mg tablet 750 mg PO DAILY 10 days #10 tabs 09/16/23 prednisone 50 mg tablet 50 mg PO DAILY 5 days #5 tabs 09/16/23 Allergies Allergy/AdvReac Type Severity Reaction Status Date / Time lisinopril AdvReac Severe unknown Verified 08/19/23 08:48 [facility] Disclaimer: The information contained in this section may have been updated after the patient was seen, as this information can be updated by other users. Medical History Stopped smoking with greater than 30 pack year history Smoking greater than 30 pack years History of sleep apnea PVC (premature ventricular contraction) Narcotic drug use COPD (chronic obstructive pulmonary disease) Claudication Bilateral leg pain Erectile dysfunction Emphysema lung Other forms of angina pectoris Anxiety Tobacco abuse counseling Surgical History History of colonoscopy History of esophagogastroduodenoscopy (EGD) Social History Smoking Status: Unknown if ever smoked alcohol intake: current alcohol intake frequency: a few times a week counseling provided: none substance use type: denies use current occupational status: employed Travel in the last 8 weeks: None ROS Obtained: Yes other As per HPI Physical Exam General General appearance: alert and in no apparent distress Head Head exam: atraumatic and normocephalic Eye Eye exam: Present normal appearance Neck Neck exam: Present normal inspection Chest Chest inspection: Present normal inspection and symmetric chest wall rise Respiratory Respiratory exam: Present wheezes and accessory muscle use; Absent respiratory distress Cardiovascular Cardiovascular exam: Present normal rhythm and tachycardia Abdominal Exam Abdominal exam: Present soft Neurological Exam Neurological exam: Present alert and oriented X3 Psychiatric Psychiatric exam: Present normal affect and normal mood Skin Skin exam: Present warm and dry Medical Decision Making Medical Records Medical records reviewed: Yes I reviewed the patient's medical records. Matthew Inquiry Pt receiving controlled substance: No Vital Signs: 09/16/23 11:48 09/16/23 14:54 Temperature 98.5 F 98.0 F Temperature Source Oral Pulse Rate 115 H Pulse Rate [Radial] 101 H Respiratory Rate 16 19 Blood Pressure 133/81 Blood Pressure [Right Arm] 164/95 H Blood Pressure Mean [Right Arm] 118 Blood Pressure Source [Right Arm] Automatic Cuff Blood Pressure Position [Right Arm] Sitting 02 Sat by Pulse Oximetry 96 Oxygen Delivery Method Room Air Lab Data Lab Results 09/16/23 12:21: WBC 11.1 H, RBC 3.91 L, Hgb 12.4 L, Hct 37.7 L, MCV 96.4 H, MCH 31.7 H, MCHC 32.9, RDW 14.3, Plt Count 288, MPV 7.5, Neut % (Auto) 85.1 H, Lymph % (Auto) 7.8 L, [place] % (Auto) 5.1, Eos % (Auto) 1.7, Baso % (Auto) 0.4, Neut # (Auto) 9.4 H, Lymph # (Auto) 0.9, [place] # (Auto) 0.6, Eos # (Auto) 0.2, Baso # (Auto) 0.0, Total Counted 100, Neutrophils % (Manual) 87 H, Lymphocytes % (Manual) 7 L, Monocytes % (Manual) 5, Eosinophils % (Manual) 1, Platelet Estimate Normal, RBC Morphology Normal, Sodium 141, Potassium 4.3, Chloride 108 H, Carbon Dioxide 25, Anion Gap 12.3, BUN 15, Creatinine 1.20, Estimated Creat Clear 75, Estimated GFR 62, Est GFR ( Amer) 74, Glucose 115 H, Calcium 9.1, Total Bilirubin 1.0, AST 35, ALT 41, Alkaline Phosphatase 94, Total Protein 7.7, Albumin 4.1, Globulin 3.6 H, Albumin/Globulin Ratio 1.1 09/16/23 12:32: SARS-CoV-2 (PCR) Not detected, Influenza A Untype (PCR) Not detected, Influenza Type B (PCR) Not detected 09/16/23 12:21 09/16/23 12:21 Orders (Tests/Meds): ED MEDICATIONS Discontinued Medications Generic Name Dose Route Start Last Admin Trade Name Freq PRN Reason Stop Dose Admin Albuterol/Ipratropium 3 ml 09/16/23 12:17 09/16/23 12:35 Ipratropium/Albuterol 3 Ml Neb IH 09/16/23 12:18 3 ml ONCE ONE Administration Lactated Ringer's 1,000 mls @ 999 mls/hr 09/16/23 12:17 09/16/23 12:35 Lactated Ringer's 1000 Ml Bag IV 09/16/23 13:17 999 mls/hr .Q1H1M ONE Administration Methylprednisolone Sodium Succinate 40 mg 09/16/23 12:17 09/16/23 12:35 Methylprednisolone Sod Succ 40mg Vial IV 09/16/23 12:18 40 mg ONCE ONE Administration ORDERS Category Date Time Status XR chest 2V Stat Exams 09/16/23 12:17 Completed CBC w/Auto Diff [Complete Blood Count Auto Diff] Stat Lab 09/16/23 12:21 Completed CMP [Comprehensive Metabolic Panel] Stat Lab 09/16/23 12:21 Completed Rapid PCR Covid and Flu A/B Stat Lab 09/16/23 12:32 Completed Medical Decision Narrative: Patient with history and exam per above presenting for evaluation of cough, shortness of breath, in the setting of recent reported history of pneumonia and COPD. Diagnoses considered include COPD, pneumonia, insufficient evidence to warrant further workup for pulmonary embolism, ACS at this time. ED workup and treatment included: ED MEDICATIONS Discontinued Medications Generic Name Dose Route Start Last Admin Trade Name Freq PRN Reason Stop Dose Admin Albuterol/Ipratropium 3 ml 09/16/23 12:17 09/16/23 12:35 Ipratropium/Albuterol 3 Ml [facility] 09/16/23 12:18 3 ml ONCE ONE Administration Lactated Ringer's 1,000 mls @ 999 mls/hr 09/16/23 12:17 09/16/23 12:35 Lactated Ringer's 1000 Ml Bag IV 09/16/23 13:17 999 mls/hr .Q1H1M ONE Administration Methylprednisolone Sodium Succinate 40 mg 09/16/23 12:17 09/16/23 12:35 Methylprednisolone Sod Succ 40mg Vial IV 09/16/23 12:18 40 mg ONCE ONE Administration ORDERS Category Date Time Status XR chest 2V Stat Exams 09/16/23 12:17 Completed CBC w/Auto Diff [Complete Blood Count Auto Diff] Stat Lab 09/16/23 12:21 Completed CMP [Comprehensive Metabolic Panel] Stat Lab 09/16/23 12:21 Completed Rapid PCR Covid and Flu A/B Stat Lab 09/16/23 12:32 Completed Labs were independently interpreted by me, significant for leukocytosis, COVID not detected creatinine 1.20. Imaging was independently visualized and interpreted by me, significant for bilateral airspace disease Please refer to radiology report for full details. My clinical impression at this time is most consistent with COPD exacerbation. Patient reports improvement of symptoms upon repeat evaluation. Outside provider's office was contacted which reveals he was previously on prescription for cefdinir. He will be written prescription for steroids, fluoroquinolone, and follow-up with primary care provider or return with any new or worsening symptoms. I discussed my clinical impression with patient and answered all questions. At this time, the evidence for any other entities in the differential is insufficient to warrant any further testing or ED observation. This was explained to the patient. The patient was advised that persistent or worsening symptoms require further evaluation. I confirmed the patient's understanding of this discussion. Critical Care Critical Care Time Critical Care Time: No
--- NOTE | 2023-09-16 12:17 | XR_ITS ---
FINAL REPORT CLINICAL HISTORY: soa, hx copd COMPARISON: 09/09/2023 FINDINGS: PA and lateral views of the chest were obtained. The cardiac and mediastinal silhouettes are within normal limits. There are worsening interstitial opacities, favor pulmonary edema.. There is no pleural effusion or pneumothorax. No acute osseous abnormality is identified. IMPRESSION: Worsening interstitial opacities, favor pulmonary edema. Reviewed, Interpreted and Dictated by Janice Ga MD Transcribed by Chasidy Mckinley Authenticated and [facility]
[2023-09-16 12:29] LABS: Basophils % 0.4 % (0.1-2.0); Eosinophils # 0.2 K/mm3 (0.0-0.4); Eosinophils % 1.7 % (0.1-12.0); Hematocrit 37.7 % (42.0-52.0); Hemoglobin 12.4 g/dL (14.1-18.0); Lymphocytes # 0.9 K/mm3 (0.7-4.5); Lymphocytes % 7.8 % (10-50); Mean Corpuscular HGB Conc 32.9 g/dL (31.8-35.4); Mean Corpuscular Hemoglobin 31.7 pg (27.0-31.2); Mean Corpuscular Volume 96.4 fl (80-94); Mean Platelet Volume 7.5 fl (7.4-10.4); Monocytes # 0.6 K/mm3 (0.1-1.0); Monocytes % 5.1 % (1.7-9.3); Neutrophils # 9.4 K/mm3 (1.8-7.8); Neutrophils % 85.1 % (37.0-80.0); Platelet Count 288 K/mm3 (142-424); Red Blood Count 3.91 M/mm3 (4.60-6.20); Red Cell Distribution Width 14.3 % (11.5-17.5); White Blood Count 11.1 K/mm3 (4.8-10.8)
[2023-09-16 12:32] LABS: MANUAL DIFFERENTIAL MANUAL DIFFERENTIAL (MANUAL DIFF)
[2023-09-16] MEDS: LACTATED RINGERS 1000ML 1,000 ML 999 ML IV (12:35)
[2023-09-16] MEDS: IPRATROPIUM/ALBUTEROL 3 ML NEB IH (12:35)
[2023-09-16] MEDS: METHYLPREDNISOLONE SOD SUCC 40MG VIAL 40 MG IV (12:35)
[2023-09-16 12:36] LABS: Coronavirus 19, PCR Not Detected (NotDetected); Influenza A, PCR Not Detected (NotDetected); Influenza B, PCR Not Detected (NotDetected)
[2023-09-16 12:39] LABS: Chloride 108 mmol/L (98-107); Potassium 4.3 mmoL/L (3.5-5.1); Sodium 141 mmol/L (136-145)
[2023-09-16 12:42] LABS: Alanine Aminotransferase 41 U/L (12-78); Albumin Level 4.1 g/dl (3.5-5.0); Albumin/Globulin Ratio 1.1 (1.1-1.8); Alkaline Phosphatase 94 U/L (38-126); Anion Gap 12.3 mEq/L (5-15); Aspartate Amino Transferase 35 U/L (17-59); Blood Urea Nitrogen 15 mg/dl (9-20); Calcium 9.1 mg/dl (8.4-10.2); Carbon Dioxide 25 mmol/L (22.0-30.0); Creatinine Clearance Estimated 75 mL/min (50-200); Estimated Glomerular Filt Rate 62 ml/min (>60); GFR (African American) 74 ML/MIN (>60); Globulin 3.6 g/dL (1.3-3.2); Glucose 115 mg/dl (74-100); Total Protein,Serum 7.7 g/dl (6.3-8.2)
[2023-09-16 12:57] LABS: Eosinophils % 1 % (0-3); Lymphocytes % 7 % (10-50); Monocytes % 5 % (2-9); Neutrophils % 87 % (42-76); Platelet Estimate Normal; RBC Morphology Normal; Total Cells Counted 100
[2023-09-16 14:54] VITALS: BP 133/81; PULSE 115; RESP 19; TEMP 36.7
== END 2023-09-16 14:55 | disposition home or self-care (01) ==
PROVIDERS: Emergency Provider Emergency Medicine; PCP Nurse Practitioner Family
DX: J44.1 Chronic obstructive pulmonary disease with (acute) exacerbation (principal); R06.02 Shortness of breath; R11.2 Nausea with vomiting, unspecified; R50.9 Fever, unspecified; R05.9 Cough, unspecified; Z87.891 Personal history of nicotine dependence
CPT/HCPCS: 71046; 80053; 85007; 85025; 85027; 87636; 96361; 96374; 99284; J2919; J7120; J7620

== ENCOUNTER 2023-09-24 11:25 | Inpatient (IN) | payer MEDICARE, MEDICAID, SELFPAY ==
[2023-09-24] VITALS (13 sets, daily range): BP systolic 103–136; BP diastolic 70–86; PULSE 93–108; RESP 14–30; TEMP 36.6–36.9; O2SAT 89–95; BMI 26.9; BMI 27.1
--- NOTE | 2023-09-24 11:30 | PC.NURSE ---
Dr. Guzman at [facility] for pt eval
--- NOTE | 2023-09-24 11:38 | PC.NURSE ---
I notified resp. that i sent up a VBG
--- NOTE | 2023-09-24 11:42 | XR_ITS ---
FINAL REPORT CLINICAL HISTORY: recent PNA, worsening on ABX COMPARISON: 09/16/2023 FINDINGS: Interstitial markings are slightly worse in the lung bases than noted on the prior exam of September 15, more prominent on the right than on the left. The appearance is consistent with interstitial pneumonia. There is no dense consolidation present. There is no evidence of effusion or other pleural disease. The mediastinum has a normal appearance. The cardiac silhouette is unremarkable. IMPRESSION: Interstitial markings slightly worse than noted on the prior exam, more prominent on the right than on the left, consistent with interstitial pneumonia. Reviewed, Interpreted and Dictated by Jose C Jeff MD Transcribed by India Collazo Authenticated and [facility]
[2023-09-24 11:51] LABS: VBG HCO3 22.2 mmol/L (23-30); VBG Oxygen Saturation 62.2 % (50-70); VBG PCO2 38.9 mmol/L (35-51); VBG PH 7.38 mmol/L (7.31-7.41); VBG PO2 33.1 mmol/L (28-40); VBG Total CO2 23.4 mmol/L (23-27)
[2023-09-24 11:52] LABS: Lactate Venous 3.5 mmol/L (0.4-2.0)
--- NOTE | 2023-09-24 11:53 | ED_ITS ---
Discharge Plan Disposition Patient Disposition: Admitted Chief Complaint: Shortness of Breath/Dyspnea Clinical Impressions Clinical Impression: Acute exacerbation of chronic obstructive pulmonary disease, Pneumonia, Sepsis Discharge ED Provider: Efrain Guzman General Adult HPI General Chief complaint: Shortness of Breath/Dyspnea Stated complaint: soa, fever, body aches Time Seen by Provider: 09/24/23 11:42 Mode of Arrival: Ambulatory Source of Information: Patient and Relative Limitations: No Limitations Description of Symptoms (Recalled from ER Triage Doc. by RN): patient and sister report that patient is experiencing increased shortness of breath. patient was orignially diagnosed with pneumonia 4 weeks ago at his PCP, was treated earlier this week in the ER on thursday. patient states he woke up this morninbg feeling increased shortness of breath, vomiting, and headache. History of Present Illness HPI narrative: Please note that above description of symptoms, in this electronic medical record under categorization of recalled from ER triage doctor by RN are reflective of an initial nursing assessment, however, is not reflective of my full history and physical exam that was personally taken and clarified. Consequentially, this preceding description of symptoms, which may include the patient's categorized chief complaint in the EMR, do not reflect my personal clinical impression, and the ultimate description of history of present illness and patient stated complaints should be deferred to this section of the note. Unless stated otherwise or congruent with this section of the note, additional signs, symptoms, or incongruence should be interpreted as inaccurate with my clinical impression. Related Data Home Medications ?Medication ?Instructions ?Recorded ?Confirmed aspirin 81 mg tablet,delayed 81 mg PO ONCE 02/13/22 08/19/23 release clonidine HCl 0.1 mg tablet 0.1 mg PO DIRECTED PRN 02/17/23 08/19/23 amlodipine 5 mg tablet 5 mg PO DAILY 08/19/23 08/19/23 metoclopramide HCl 10 mg tablet 5 mg PO QID 08/19/23 08/19/23 Previous Rx's ?Medication ?Instructions ?Recorded albuterol sulfate 90 mcg/actuation 2 inh inhalation QID PRN shortness 07/24/21 aerosol inhaler of breath or wheezing 90 days #8.5 grams budesonide-formoterol HFA 160 2 puff inhalation BID 90 days 07/24/21 mcg-4.5 mcg/actuation aerosol #10.2 grams inhaler carvedilol 25 mg tablet 25 mg PO BID #180 tabs 02/13/22 losartan 50 mg tablet 50 mg PO BID #60 tabs 02/17/23 levofloxacin 750 mg tablet 750 mg PO DAILY 10 days #10 tabs 09/16/23 prednisone 50 mg tablet 50 mg PO DAILY 5 days #5 tabs 09/16/23 Allergies Allergy/AdvReac Type Severity Reaction Status Date / Time lisinopril AdvReac Severe unknown Verified 08/19/23 08:48 [facility] Disclaimer: The information contained in this section may have been updated after the patient was seen, as this information can be updated by other users. Medical History Stopped smoking with greater than 30 pack year history Smoking greater than 30 pack years History of sleep apnea PVC (premature ventricular contraction) Narcotic drug use COPD (chronic obstructive pulmonary disease) Claudication Bilateral leg pain Erectile dysfunction Emphysema lung Other forms of angina pectoris Anxiety Tobacco abuse counseling Surgical History History of colonoscopy History of esophagogastroduodenoscopy (EGD) Social History Smoking Status: Former smoker tobacco type: cigarettes packs per day: 1 alcohol intake: current alcohol intake frequency: a few times a week counseling provided: none substance use type: denies use current occupational status: employed Travel in the last 8 weeks: None ROS Obtained: Yes All systems reviewed & no additional complaints except as documented Physical Exam General General appearance: alert and in no apparent distress Head Head exam: atraumatic and normocephalic Eye Eye exam: Present normal appearance, PERRL and EOMI Neck Neck exam: Present normal inspection, full ROM and trachea midline Respiratory Respiratory exam: Present wheezes (Bibasilar posteriorly. Right greater than left. Intermittently coughing nonproductive cough); Absent respiratory distress, stridor, accessory muscle use or prolonged expiratory phase Cardiovascular Cardiovascular exam: Present regular rate, tachycardia and other (Pulses equal symmetric in upper and lower extremities) Abdominal Exam Abdominal exam: Present soft; Absent distention, tenderness or pulsatile mass Extremities Exam Extremities exam: Absent edema Neurological Exam Neurological exam: Present alert, oriented X3 and CN II-XII intact; Absent motor sensory deficit Skin Skin exam: Present warm and dry; Absent diaphoresis or erythema Medical Decision Making Medical Records Medical records reviewed: Yes I reviewed the patient's medical records. Matthew Inquiry Pt receiving controlled substance: No Matthew was queried for this patient: No Vital Signs: 09/24/23 11:26 09/24/23 11:29 09/24/23 11:30 Temperature 98.4 F Temperature Source Oral Pulse Rate 104 H 107 H Pulse Rate [Right Radial] 108 H Respiratory Rate 20 Blood Pressure 108/70 L Blood Pressure [Right Arm] 108/70 L Blood Pressure Mean 82 Blood Pressure Mean [Right Arm] 82 Blood Pressure Source [Right Arm] Automatic Cuff Blood Pressure Position [Right Arm] Sitting 02 Sat by Pulse Oximetry 91 L 92 L 92 L Oxygen Delivery Method Nasal Cannula Room Air Room Air 09/24/23 12:30 09/24/23 13:00 09/24/23 13:30 Temperature Temperature Source Pulse Rate 105 H 104 H 100 H Pulse Rate [Right Radial] Respiratory Rate 22 14 30 H Blood Pressure Blood Pressure [Right Arm] Blood Pressure Mean Blood Pressure Mean [Right Arm] Blood Pressure Source [Right Arm] Blood Pressure Position [Right Arm] 02 Sat by Pulse Oximetry 92 L 89 L 93 L Oxygen Delivery Method Room Air Lab Data Lab Results 09/24/23 11:36: WBC 17.9 H, RBC 4.44 L, Hgb 13.7 L, Hct 43.4, MCV 97.8 H, MCH 30.9, MCHC 31.6 L, RDW 14.8, Plt Count 284, MPV 7.2 L, Neut % (Auto) 91.7 H, L ymph % (Auto) 4.1 L, [place] % (Auto) 3.4, Eos % (Auto) 0.6, Baso % (Auto) 0.2, N eut # (Auto) 16.4 H, Lymph # (Auto) 0.7, [place] # (Auto) 0.6, Eos # (Auto) 0.1, Baso # (Auto) 0.0, Total Counted 100, Neutrophils % (Manual) 88 H, Lymphocytes % (Manual) 10, Monocytes % (Manual) 2, Platelet Estimate Normal, RBC Morphology Normal, Sodium 140, Potassium 3.5, Chloride 107, Carbon Dioxide 25, Anion Gap 11.5, BUN 20, Creatinine 1.30 H, Estimated Creat Clear 68, Estimated GFR 56 L, Est GFR ( Amer) 68, Glucose 115 H, Calcium 8.8, Total Bilirubin 0.9, AST 32, ALT 57, Alkaline Phosphatase 78, NT-Pro-B Natriuret Pep 1280 H, Total Protein 6.7, Albumin 3.6, Globulin 3.1, Albumin/Globulin Ratio 1.2, Procalcitonin 0.428 09/24/23 11:43: VBG pH 7.38, VBG pCO2 38.9, VBG pO2 33.1, VBG HCO3 22.2 L, VBG Total CO2 23.4, VBG O2 Saturation 62.2, VBG Base Excess -3.0 L, VBG Lactic Acid 3.5 H 09/24/23 11:36 09/24/23 11:36 Orders (Tests/Meds): ED MEDICATIONS Generic Name Dose Route Start Last Admin Trade Name Freq PRN Reason Stop Dose Admin Lactated Ringer's 2,050 mls @ 1,025 mls/hr 09/24/23 12:35 09/24/23 12:41 Lactated Ringer's 1000 Ml Bag 30 ml/kg infuse over 2 hr (2050 ml) 09/24/23 14:34 1,025 mls/hr IV Administration .Q2H ONE Vancomycin/PEG/[place]/Lysine/Water 1.5 gm in 300 mls @ 150 mls/hr 09/24/23 12:45 09/24/23 13:45 Vancomycin 1.5gm/300ml (Peg) Premix IV 09/24/23 14:44 150 mls/hr ONCE ONE Administration Discontinued Medications Generic Name Dose Route Start Last Admin Trade Name Freq PRN Reason Stop Dose Admin Albuterol/Ipratropium 9 ml 09/24/23 11:42 09/24/23 11:54 Ipratropium/Albuterol 3 Ml Neb IH 09/24/23 11:43 9 ml ONCE ONE Administration Ceftriaxone Sodium 2 gm/ 100 mls @ 200 mls/hr 09/24/23 12:25 09/24/23 12:40 Sodium Chloride IV 09/24/23 12:54 200 mls/hr ONCE ONE Administration Methylprednisolone Sodium Succinate 125 mg 09/24/23 11:42 09/24/23 11:55 Methylprednisolone Sod Succ 125mg Vial IV 09/24/23 11:43 125 mg ONCE ONE Administration Miscellaneous 1 each 09/24/23 12:30 09/24/23 13:52 Vancomycin Consult Request NOTAPPLIC 10/24/23 12:29 Not Given CONSULT PHARMACY [facility] ORDERS Category Date Time Status CXR 2 view (NOT portable) [XR chest 2V] Stat Exams 09/24/23 11:42 Completed Complete Blood Count Auto Diff Stat Lab 09/24/23 11:36 Completed Comprehensive Metabolic Panel Stat Lab 09/24/23 11:36 Completed NT Pro Brain Natriuretic Pep. Stat Lab 09/24/23 11:36 Completed Procalcitonin Stat Lab 09/24/23 11:36 Completed Blood Culture Stat Micro 09/24/23 12:25 Received Venous Blood Gas Stat RT 09/24/23 11:43 Completed Medical Decision Narrative: 62-year-old male history of hypertension, hyperlipidemia, diabetes, COPD not on home oxygen not currently smoking presenting with shortness of breath, cough, concern for pneumonia. Patient was seen just a couple days prior to this visit. He was diagnosed with pneumonia, sent home with prednisone and levofloxacin for COPD exacerbation in the setting of pneumonia. Patient states that he is 2 doses of the antibiotic left, is now done with steroid. States that he is still having fevers, chills, cough productive of yellow sputum, fatigue, and nausea. Denies chest pain, diaphoresis, positional shortness of breath, recent sick contacts, or any other concerns. History was obtained via conversation with patient and family. On arrival, patient hemodynamically stable, alert, oriented x4, appropriate, GCS 15, moving all extremities spontaneously, pupils equal and reactive to light. Full physical exam performed and significant for very well- appearing male who is in no acute distress. He is intermittently coughing. Mildly tachycardic 100 to 110 bpm. Lungs are clear and superior genao, but and bibasilar genao posteriorly wheezes, right greater than left. Cardiac exam normal otherwise. Differential includes COPD exacerbation, pneumonia, pneumothorax, PE, bronchitis, CHF, among others. Patient placed on continuous cardiac monitoring and continuous pulse ox with initial blood pressure 108/70, heart rate 108, saturation 91% on room air. Patient was given DuoNebs, Solu-Medrol for symptomatic management and correction of underlying abnormalities. Workup independently interpreted and significant for leukocytosis increased from 11.1-17.9 today, neutrophilia. Could be due to worsening infection versus steroid-induced D marginalization. VBG not acidotic or alkalotic, CO2 normal, oxygen normal, but lactic acid 3.5, likely secondary to increased work of breathing versus underlying developing sepsis. CECI on CKD creatinine 1.3. Patient BNP elevated at 1280, no baseline with which to compare. Chest x-ray with right lower lobe opacities worse than previously concerning for worsening airspace disease. See radiology read for full review of final results. On reevaluation, patient is coughing improved, remains hemodynamically stable, afebrile and well-appearing, but tired and pale. Still states that he feels like he has no energy. Hospital medicine contacted case was discussed at length, patient to be admitted for further evaluation given failure of outpatient management. Because patient high risk for clinical decompensation, deemed appropriate for inpatient admission. Results were relayed to patient who voiced understanding and patient was agreeable to inpatient admission and management. Patient was admitted to the hospital for further definitive management. Glass C[employer] disclaimer Much of this encounter note is an electronic assistant professor of archaeology spoken language to printed text. Electronic assistant professor of archaeology of the spoken language may permit errors. Although I have reviewed the note, some errors may still exist. Critical Care Critical Care Time Critical Care Time: Yes (ID) Attestation: On 09/24/23, the high probability of a clinically significant, sudden or life threatening deterioration of the following system(s) required my full and direct attention, intervention and personal management. The time I documented below is in addition to time spent performing reported procedures but includes the following listed in this critical care notation. Total Time Total Critical Care Time: 35
[2023-09-24] MEDS: IPRATROPIUM/ALBUTEROL 3 ML NEB 9 ML IH (11:54)
[2023-09-24] MEDS: METHYLPREDNISOLONE SOD SUCC 125MG VIAL 125 MG IV (11:55)
[2023-09-24 11:58] LABS: Basophils % 0.2 % (0.1-2.0); Eosinophils # 0.1 K/mm3 (0.0-0.4); Eosinophils % 0.6 % (0.1-12.0); Hematocrit 43.4 % (42.0-52.0); Hemoglobin 13.7 g/dL (14.1-18.0); Lymphocytes # 0.7 K/mm3 (0.7-4.5); Lymphocytes % 4.1 % (10-50); Mean Corpuscular HGB Conc 31.6 g/dL (31.8-35.4); Mean Corpuscular Hemoglobin 30.9 pg (27.0-31.2); Mean Corpuscular Volume 97.8 fl (80-94); Mean Platelet Volume 7.2 fl (7.4-10.4); Monocytes # 0.6 K/mm3 (0.1-1.0); Monocytes % 3.4 % (1.7-9.3); Neutrophils # 16.4 K/mm3 (1.8-7.8); Neutrophils % 91.7 % (37.0-80.0); Platelet Count 284 K/mm3 (142-424); Red Blood Count 4.44 M/mm3 (4.60-6.20); Red Cell Distribution Width 14.8 % (11.5-17.5); White Blood Count 17.9 K/mm3 (4.8-10.8)
[2023-09-24 11:59] LABS: Chloride 107 mmol/L (98-107)
[2023-09-24 12:00] LABS: Potassium 3.5 mmoL/L (3.5-5.1); Sodium 140 mmol/L (136-145)
[2023-09-24 12:02] LABS: Alanine Aminotransferase 57 U/L (12-78); Alkaline Phosphatase 78 U/L (38-126); Aspartate Amino Transferase 32 U/L (17-59); Bilirubin,Total 0.9 mg/dl (0.2-1.3); Blood Urea Nitrogen 20 mg/dl (9-20); Creatinine Clearance Estimated 68 mL/min (50-200); Estimated Glomerular Filt Rate 56 ml/min (>60); GFR (African American) 68 ML/MIN (>60)
[2023-09-24 12:03] LABS: Albumin Level 3.6 g/dl (3.5-5.0); Albumin/Globulin Ratio 1.2 (1.1-1.8); Anion Gap 11.5 mEq/L (5-15); Calcium 8.8 mg/dl (8.4-10.2); Carbon Dioxide 25 mmol/L (22.0-30.0); Globulin 3.1 g/dL (1.3-3.2); Glucose 115 mg/dl (74-100); Total Protein,Serum 6.7 g/dl (6.3-8.2)
[2023-09-24 12:06] LABS: MANUAL DIFFERENTIAL MANUAL DIFFERENTIAL (MANUAL DIFF)
[2023-09-24 12:12] LABS: NT Pro Brain Natriuretic Pep. 1280 pg/mL (0-125)
--- NOTE | 2023-09-24 12:17 | PC.NURSE ---
2 unsuccessful attempt x 2 for blood culture. Pt tolerated well.
--- NOTE | 2023-09-24 12:27 | PC.NURSE ---
pt is finished with neb treatment was given a box of tissues
[2023-09-24 12:35] LABS: Lymphocytes % 10 % (10-50); Monocytes % 2 % (2-9); Neutrophils % 88 % (42-76); Platelet Estimate Normal; RBC Morphology Normal; Total Cells Counted 100
[2023-09-24 12:38] LABS: Procalcitonin 0.428 ng/mL (0.0-2.0)
[2023-09-24] MEDS: CEFTRIAXONE SODIUM 2 GM in 0.9 % SODIUM CHLORIDE 100 ML IV (12:40)
[2023-09-24] MEDS: LACTATED RINGERS 1000ML 2,050 ML 1025 ML IV (12:41)
[2023-09-24] MEDS: VANCOMYCIN/WATER FOR INJ (PEG) 1.5 GM/300 ML PIGGYBACK IV (13:45)
--- NOTE | 2023-09-24 13:50 | PC.NURSE ---
Dr. Guzman speaking with Dr. Hurtado, hospitalist for admission
--- NOTE | 2023-09-24 13:55 | PC.NURSE ---
Sepsis fluid bolus stopped at request of Dr. Harkins, hospitalist.
--- NOTE | 2023-09-24 14:12 | PC.NURSE ---
HOUSE NOTIFIED OF ADMISSION
--- NOTE | 2023-09-24 14:24 | PC.NURSE ---
Report called to Vicente ZHAO
--- NOTE | 2023-09-24 14:29 | HMH.PHAINT1 ---
Pharmacy Intervention Comments: MEDICATION RECONCILIATION COMPLETED ON PATIENT USING EXTERNAL FILL HISTORY FROM PHARMACY. -PINKY HANCOCK, CRISD
--- NOTE | 2023-09-24 14:39 | PC.NURSE ---
CALLED EMS LET THEM KNOW PT IS READY TO BE TRANSFERRED TO RELIGIOUS UNIT 2B ICU.. SHAAN CONTRERAS [place] STATED ONE OTHER TRUCK RETURNED FROM CUSTODIAL TRANSFER THEY WOULD BE UP TAKE PT
--- NOTE | 2023-09-24 14:41 | EXP.HP ---
History of Present Illness *Admission Date: 09/24/23 *Reason for visit:: cough, SOA *History of present illness: Mr. Botello is a 62-year-old male with history of COPD, diastolic heart failure, emphysema, hypertension, former smoker with history of esophageal and stomach cancer removed 2 years ago. Presented to the ER with persistent shortness of breath. Originally diagnosed with pneumonia 4 weeks ago by his PCP. Was treated with another round of antibiotics a week ago and just finished his steroids. Has not gotten much better and started feeling more short of breath this morning accompanied by vomiting and a headache. Patient states has had some chills but no cony fever. Denies any chest pain. O2 sats in the high 80s low 90s on presentation to the ER. Repeat imaging obtained showing prominent fissures. White cell count [id number]. Kidney function at baseline with creatinine 1.3. BNP also noted to be elevated at almost 1300. Concern for persistent pneumonia and failure of outpatient therapy with component of CHF. Medicine consulted for admission and further management. On arrival to the floor, patient having productive cough of thin sputum. Is afebrile. Alert and oriented x 4. On 2 L with improved O2 sats. Does not recall being told he has heart failure however has an echo from 2020 showing diastolic dysfunction. Not on a diuretic at home. [facility] Disclaimer: The information contained in this section may have been updated after the patient was seen, as this information can be updated by other users. Medical History Stopped smoking with greater than 30 pack year history Smoking greater than 30 pack years History of sleep apnea PVC (premature ventricular contraction) Narcotic drug use COPD (chronic obstructive pulmonary disease) Claudication Bilateral leg pain Erectile dysfunction Emphysema lung Other forms of angina pectoris Anxiety Tobacco abuse counseling Surgical History History of colonoscopy History of esophagogastroduodenoscopy (EGD) Social History Smoking Status: Former smoker tobacco type: cigarettes packs per day: 1 alcohol intake: current alcohol intake frequency: a few times a week counseling provided: none substance use type: denies use current occupational status: employed Travel in the last 8 weeks: None Review of Systems Review of Systems Review of systems (narrative): 14 point review of systems performed, pertinent positives and negatives as per HPI Meds Home Medications and Allergies Home Medications ?Medication ?Instructions ?Recorded ?Confirmed ?Type budesonide-formoterol HFA 160 2 puff inhalation BID 90 days 07/24/21 09/24/23 Rx mcg-4.5 mcg/actuation aerosol #10.2 grams inhaler aspirin 81 mg tablet,delayed 81 mg PO DAILY 02/13/22 09/24/23 History release carvedilol 25 mg tablet 25 mg PO BID #180 tabs 02/13/22 09/24/23 Rx losartan 50 mg tablet 50 mg PO BID #60 tabs 02/17/23 09/24/23 Rx amlodipine 5 mg tablet 5 mg PO DAILY 08/19/23 09/24/23 History metoclopramide HCl 10 mg tablet 5 mg PO QID 08/19/23 09/24/23 History levofloxacin 750 mg tablet 750 mg PO DAILY 10 days #10 tabs 09/16/23 09/24/23 Rx albuterol sulfate 90 mcg/actuation 2 inh inhalation QIDP PRN 09/24/23 09/24/23 History aerosol inhaler shortness of breath or wheezing omeprazole 40 mg capsule,delayed 40 mg PO DAILY 09/24/23 09/24/23 History release ondansetron 8 mg disintegrating 8 mg PO BIDP PRN Nausea And 09/24/23 09/24/23 History tablet Vomiting New Prescriptions to Start Prescriptions: Allergies Allergy/AdvReac Type Severity Reaction Status Date / Time lisinopril AdvReac Severe unknown Verified 08/19/23 08:48 Exam Data for Last 24 hours Vital signs and Labs for Last 24 Hours: Temp Pulse Resp BP Pulse Ox O2 Del Method 98.4 F 100 H 30 H 108/70 L 93 L Room Air 09/24/23 11:26 09/24/23 13:30 09/24/23 13:30 09/24/23 11:29 09/24/23 13:30 09/24/23 13:30 Laboratory Results - last 24 hr 09/24/23 11:36: WBC 17.9 H, RBC 4.44 L, Hgb 13.7 L, Hct 43.4, MCV 97.8 H, MCH 30.9, MCHC 31.6 L, RDW 14.8, Plt Count 284, MPV 7.2 L, Neut % (Auto) 91.7 H, Lymph % (Auto) 4.1 L, [place] % (Auto) 3.4, Eos % (Auto) 0.6, Baso % (Auto) 0.2, Neut # (Auto) 16.4 H, Lymph # (Auto) 0.7, [place] # (Auto) 0.6, Eos # (Auto) 0.1, Baso # (Auto) 0.0, Total Counted 100, Neutrophils % (Manual) 88 H, Lymphocytes % (Manual) 10, Monocytes % (Manual) 2, Platelet Estimate Normal, RBC Morphology Normal, Sodium 140, Potassium 3.5, Chloride 107, Carbon Dioxide 25, Anion Gap 11.5, BUN 20, Creatinine 1.30 H, Estimated Creat Clear 68, Estimated GFR 56 L, Est GFR ( Amer) 68, Glucose 115 H, Calcium 8.8, Total Bilirubin 0.9, AST 32, ALT 57, Alkaline Phosphatase 78, NT-Pro-B Natriuret Pep 1280 H, Total Protein 6.7, Albumin 3.6, Globulin 3.1, Albumin/Globulin Ratio 1.2, Procalcitonin 0.428 09/24/23 11:43: VBG pH 7.38, VBG pCO2 38.9, VBG pO2 33.1, VBG HCO3 22.2 L, VBG Total CO2 23.4, VBG O2 Saturation 62.2, VBG Base Excess -3.0 L, VBG Lactic Acid 3.5 H I & O for Last 24 hours: Intake & Output 09/21/23 09/22/23 09/23/23 09/24/23 23:59 23:59 23:59 23:59 Weight 80.343 kg Constitutional Constitutional: no acute distress, average body habitus, chronically ill appearing and cooperative *Routine HEENT Exam Head: Present normocephalic Eye: Present EOMI and PERRL ENT: Present mucous membranes moist *Routine Neck Exam Neck: Present supple; Absent lymphadenopathy *Routine Respiratory Exam Respiratory: Present prolonged expiratory phase, rhonchi and crackles (In right posterior lung field); Absent wheezes *Routine Cardiovascular Exam Cardiovascular: Present RRR *Routine Abdominal Exam Abdominal: Present soft and normoactive bowel sounds; Absent tenderness *Routine Rectal Exam Rectal:: deferred *Routine Genitalia Exam Genitalia:: deferred *Routine Extremities Exam Extremities: Present edema (Trace bilateral lower extremity); Absent cyanosis or clubbing *Routine Skin Exam Skin: Present warm; Absent rash *Routine Neurological Exam Neurological: Present alert, oriented X3, altered mental status and moving all extremities Assessment and Plan *Assessment and plan (1) Sepsis: Status: Acute Category: Medical Code(s): A41.9 - Sepsis, unspecified organism (2) Pneumonia: Status: Acute Category: Medical Code(s): J18.9 - Pneumonia, unspecified organism (3) Acute on chronic diastolic heart failure: Status: Acute Category: Medical Code(s): I50.33 - Acute on chronic diastolic (congestive) heart failure (4) Acute exacerbation of chronic obstructive pulmonary disease: Status: Acute Category: Medical Code(s): J44.1 - Chronic obstructive pulmonary disease with (acute) exacerbation (5) Type 2 diabetes mellitus with diabetic peripheral angiopathy without gangrene: Status: Acute Category: Medical Code(s): E11.51 - Type 2 diabetes mellitus with diabetic peripheral angiopathy without gangrene (6) Anxiety: Status: Acute Category: Medical Code(s): F41.9 - Anxiety disorder, unspecified (7) Hypertensive heart disease: Status: Chronic Qualifiers: Heart failure presence: without heart failure Qualified Code(s): I11.9 - Hypertensive heart disease without heart failure Category: Medical Code(s): I11.9 - Hypertensive heart disease without heart failure Plan 62-year-old male with persistent respiratory symptoms concerning for prolonged pneumonia or recurrent pneumonia over the past 4 weeks. Presented to the ER with shortness of breath, productive cough. Chest imaging with prominent fissures bilaterally. White cell count elevated. Patient tachycardic and tachypneic. Meeting sepsis criteria. Concern for pneumonia. PSI/port score of 101 making him class IV risk. Discussed case with ER physician, request admission for IV antibiotics and further treatment. I agreed to admit. Concern for CHF component. Will diurese x 1. Did not receive sepsis bolus due to acute CHF component. Blood pressure normal at this time, not hypotensive. Problems addressed as follows: Sepsis Pneumonia -X-ray concerning for persistent airspace disease per my review. CT obtained, per my review, has patchy consolidation in the right lung field. Air-fluid levels and esophagus/portion of stomach above the diaphragm. Concern for aspiration - Ceftriaxone 2 g every 24 hours. Continue vancomycin 1.25 g every 18 hours. -Received a dose of methylprednisolone 125 mg once in the ER. Completed course of steroids at home prior to admission -DuoNebs every 6 hours scheduled -Sputum culture pending, blood cultures obtained -Continue daily lab ICS combo -Supplemental oxygen as needed, currently on 2 L nasal cannula oxygen. Goal sats greater 90%. -CBC, CMP, magnesium ordered for the morning -White cell count elevated at 17.9, hemoglobin 13.7. -Creatinine 1.3 appears to be patient's baseline. Diabetes: Fingersticks ACHS, A1c 5.6. Sliding scale insulin per protocol Component of CHF. Hold diuresis once with Bumex 1 mg IV. -Blood pressure appropriate, continue irbesartan as formulary conversion 75 mg twice daily Continue carvedilol 25 mg twice daily Continue aspirin 81 mg daily History of esophageal and stomach cancer: -Awaiting formal read on CT. Part of stomach is above the diaphragm. Concern patient is having an aspiration component due to gastric contents in his lower esophagus. -Needs follow-up with GI after discharge for further evaluation.. -Continue PPI nightly Full code Lovenox 40 mg subcu daily Diabetic diet
--- NOTE | 2023-09-24 14:43 | PC.NURSE ---
I called to check on status of transport for pt to med surg. They are waiting for the admit order to be placed by the hospitalist.
--- NOTE | 2023-09-24 14:49 | PC.NURSE ---
floor techs x 2 at BS to transfer patient to 2nd floor.
--- NOTE | 2023-09-24 14:56 | PC.NURSE ---
arrived by stretcher from ed.
[2023-09-24 15:52] LABS: Reflex Lactic Add Lactic Reflex
--- NOTE | 2023-09-24 16:02 | EXP.PHA.CONS ---
Pharmacy Consult Date: 09/24/23 Time: 16:02 Referring provider: DR. KAYE Reason for Consult:: VANCOMYCIN DOSING Allergies Allergy/AdvReac Type Severity Reaction Status Date / Time lisinopril AdvReac Severe unknown Verified 08/19/23 08:48 Home Medications ?Medication ?Instructions ?Recorded ?Confirmed ?Type budesonide-formoterol HFA 160 2 puff inhalation BID 90 days 07/24/21 09/24/23 Rx mcg-4.5 mcg/actuation aerosol #10.2 grams inhaler aspirin 81 mg tablet,delayed 81 mg PO DAILY 02/13/22 09/24/23 History release carvedilol 25 mg tablet 25 mg PO BID #180 tabs 02/13/22 09/24/23 Rx losartan 50 mg tablet 50 mg PO BID #60 tabs 02/17/23 09/24/23 Rx amlodipine 5 mg tablet 5 mg PO DAILY 08/19/23 09/24/23 History metoclopramide HCl 10 mg tablet 5 mg PO QID 08/19/23 09/24/23 History levofloxacin 750 mg tablet 750 mg PO DAILY 10 days #10 tabs 09/16/23 09/24/23 Rx albuterol sulfate 90 mcg/actuation 2 inh inhalation QIDP PRN 09/24/23 09/24/23 History aerosol inhaler shortness of breath or wheezing omeprazole 40 mg capsule,delayed 40 mg PO DAILY 09/24/23 09/24/23 History release ondansetron 8 mg disintegrating 8 mg PO BIDP PRN Nausea And 09/24/23 09/24/23 History tablet Vomiting New Prescriptions to Start Prescriptions: Height: 1.73 m Weight: 80.796 kg Laboratory Results:: Laboratory Results - last 24 hr 09/24/23 11:36: WBC 17.9 H, RBC 4.44 L, Hgb 13.7 L, Hct 43.4, MCV 97.8 H, MCH 30.9, MCHC 31.6 L, RDW 14.8, Plt Count 284, MPV 7.2 L, Neut % (Auto) 91.7 H, Lymph % (Auto) 4.1 L, [place] % (Auto) 3.4, Eos % (Auto) 0.6, Baso % (Auto) 0.2, Neut # (Auto) 16.4 H, Lymph # (Auto) 0.7, [place] # (Auto) 0.6, Eos # (Auto) 0.1, Baso # (Auto) 0.0, Total Counted 100, Neutrophils % (Manual) 88 H, Lymphocytes % (Manual) 10, Monocytes % (Manual) 2, Platelet Estimate Normal, RBC Morphology Normal, Sodium 140, Potassium 3.5, Chloride 107, Carbon Dioxide 25, Anion Gap 11.5, BUN 20, Creatinine 1.30 H, Estimated Creat Clear 68, Estimated GFR 56 L, Est GFR ( Amer) 68, Glucose 115 H, Calcium 8.8, Total Bilirubin 0.9, AST 32, ALT 57, Alkaline Phosphatase 78, NT-Pro-B Natriuret Pep 1280 H, Total Protein 6.7, Albumin 3.6, Globulin 3.1, Albumin/Globulin Ratio 1.2, Procalcitonin 0.428 09/24/23 11:43: VBG pH 7.38, VBG pCO2 38.9, VBG pO2 33.1, VBG HCO3 22.2 L, VBG Total CO2 23.4, VBG O2 Saturation 62.2, VBG Base Excess -3.0 L, VBG Lactic Acid 3.5 H Medical History: Medical History (Updated 09/24/23 @ 14:27 by Efrain Guzman MD) Stopped smoking with greater than 30 pack year history Smoking greater than 30 pack years History of sleep apnea PVC (premature ventricular contraction) Narcotic drug use COPD (chronic obstructive pulmonary disease) Claudication Bilateral leg pain Erectile dysfunction Emphysema lung Other forms of angina pectoris Anxiety Tobacco abuse counseling Assessment and Plan Assessment and plan all Dx Assessment and Plan for all problems:: Pharmacokinetic dosing service Objective: Patient: Floor: Age: 62 yo Serum creatinine: 1.30 mg/dL Height: 68.0 Inches Weight (kg): 80.8 Assessment: IBW (kg): 68.40 Dosing wt(kg): 80.8 Estimated Creatinine clearance (ml/min): 57.7 CRCL method: Cockcroft and Gault using ibw(default). Drug selected: Vancomycin Loading dose (mg): Vd (liters): 64.6 (factor used: 0.8 L/kg) [place] (hr-1): 0.052 Half life (hrs): 13.33 CLvanco=?? 3.359 L/hr Recommended dose: 1250 mg Interval: 18 hrs Infusion time (hrs): 2.0 Predicted peak (mcg/mL): 30.2 Predicted trough (mcg/mL): 13.14 Total body weight is being used for vancomycin dosing. Recommendations: Give Vancomycin 1250 mg q 18 hrs with an expected Cpeak of 30.2 mcg/ml and an expected Ctrough of 13.14 mcg/ml AUC 0-24 /OLESYA Data: OLESYA 0.5 mcg/mL:?? AUC/OLESYA:? 992.4 OLESYA 1.0 mcg/mL:?? AUC/OLESYA:? 496.2 --------- OLESYA 1.5 mcg/mL:?? AUC/OLESYA:? 330.8 OLESYA 2.0 mcg/mL:?? AUC/OLESYA:? 248.1 Thank you for the consult, will continue to follow. -CRIS MARCD
--- NOTE | 2023-09-24 16:07 | CT_ITS ---
PROCEDURE INFORMATION: Exam: CT Chest Without Contrast; Diagnostic Exam date and time: 09/24/2023 4:28 PM Age: 62 years old Clinical indication: Other: Eval for chf versus pneumonia. TECHNIQUE: Imaging protocol: Diagnostic computed tomography of the chest without contrast. Radiation optimization: All CT scans at this facility use at least one of these dose optimization techniques: automated exposure control; mA and/or kV adjustment per patient size (includes targeted exams where dose is matched to clinical indication); or iterative reconstruction. COMPARISON: CT ANGIO CHEST PE PROTOCOL 01/25/2022 3:42 PM FINDINGS: Lungs: There are a few punctate pulmonary parenchymal calcifications, consistent with remote granulomatous organism exposure. Mild centrilobular and paraseptal emphysematous changes are present. There are scattered patchy opacities predominantly in the right lung, some of which appear ground-glass with hazy peribronchial opacities suggesting endobronchial/bronchial inflammation. Mild posterior dependent right basilar opacities appear slightly more confluence. Flattening of the hemidiaphragms and increase in the AP diameter of the chest suggest COPD. A few minor scattered areas of increased peripheral interstitial markings in the the lung cortices are unchanged suggesting minor peripheral fibrosis. There are F/U punctate pulmonary parenchymal calcifications, consistent with remote granulomatous organism exposure Pleural spaces: There are no pleural effusions. No pneumothorax. Heart: There is a trace amount of pericardial fluid. Coronary arteries: There is moderate atherosclerotic calcification of the coronary arteries. Lymph nodes: There is a calcified subcarinal lymph node measuring approximately 11 mm in short axis suggesting prior granulomatous disease. A left paratracheal lymph node measures 10 mm in short axis, as before. A few additional small mediastinal lymph nodes are present, not of pathologic significance by size criteria. Vasculature: The aorta demonstrates moderate atherosclerotic calcification. There is no evidence of an aortic aneurysm. Adrenal glands: The right adrenal gland is normal. Previously identified left adrenal nodule is stable with mild punctate calcification. Internal Hounsfield units measure approximately 10 suggesting adenoma. This previously measured approximately 5.5 x 2.3 cm and currently measures approximately 5.5 x 2.2 cm. Stomach: Postoperative changes involve the GE junction region, consistent with distal esophagectomy with gastric pull-through. There is an air-fluid level throughout the majority of the gastric pull-through. The remainder of the upper visualized intra-abdominal structures are normal. Bones/joints: The thoracic spine demonstrates moderate degenerative changes at multiple levels. The visualized cervical spine demonstrates moderate discogenic and spondylitic degenerative changes. There is no evidence of acute fracture. Soft tissues: There is a 17 mm hypodense subcutaneous nodule with internal Hounsfield units consistent with fluid along the right parasagittal posterior upper back most consistent with sebaceous cyst. A similar but smaller structure is seen in the contralateral left parasagittal subcutaneous tissues at the same level best seen on series 2, image 28. No significant soft tissue edema. Other findings: Evaluation is limited by the lack of intravenous contrast. IMPRESSION: 1. Status post partial distal esophagectomy with gastric pull-through. 2. Scattered patchy nodular and ground-glass opacities in the right lung with a predominantly peribronchial distribution suggesting endobronchial/bronchial inflammation/pneumonia. Recommend short-term follow-up to ensure resolution. 3. Mild centrilobular emphysematous changes. 4. Stable left adrenal nodule with internal Hounsfield units suggestive of adenoma. COMMENTS: The presence of pulmonary emphysema on CT is an independent risk factor for lung cancer. In the absence of a history or active diagnosis of lung cancer, it is recommended that this patient with emphysema be evaluated for enrollment in a low dose CT lung cancer screening program.
[2023-09-24 16:16] LABS: POC Glucose,Bedside 153 (70-110)
[2023-09-24] MEDS: BUMETANIDE 1MG/4ML VIAL 1 MG IV (16:17)
[2023-09-24] MEDS: humaLOG 100 UNITS/ML 10ML VIAL (SSI) SQ ×2 (16:20→20:46)
[2023-09-24 16:48] LABS: Lactic Acid Follow Up (RFLX 1) 1.7 mmol/L (0.7-2.1)
[2023-09-24] MEDS: FLUTICASONE/SALMETEROL 250/50MCG DISKUS 1 PUFF IH (18:36)
[2023-09-24] MEDS: IPRATROPIUM/ALBUTEROL 3 ML NEB IH (18:36)
[2023-09-24 18:41] LABS: Hemoglobin A1C 5.6 % (4.0-6.0)
[2023-09-24] MEDS: CARVEDILOL 25MG TABLET 25 MG PO (20:42)
[2023-09-24] MEDS: PANTOPRAZOLE 40MG TABLET 40 MG PO (20:42)
[2023-09-24] MEDS: IRBESARTAN 75MG TABLET 75 MG PO (20:45)
[2023-09-24 20:57] LABS: POC Glucose,Bedside 215 (70-110)
[2023-09-25] VITALS (10 sets, daily range): BP systolic 101–118; BP diastolic 61–74; PULSE 66–101; RESP 16–20; TEMP 36.6–36.8; O2SAT 91–96; BMI 26.6
[2023-09-25] MEDS: IPRATROPIUM/ALBUTEROL 3 ML NEB IH ×4 (00:07→23:10)
[2023-09-25] MEDS: ONDANSETRON 4MG ODT 8 MG SL (00:28)
--- NOTE | 2023-09-25 04:58 | PC.NURSE ---
62 yo male pt with admitting Dx of pneumonia/SOA. Pt with 02 at 2 liters, Sats remain above 90 and VS stable for pt. He has had 2 episodes of vomiting without nausea, reporting he just begins coughing. Pt medicated with zofran and has rested without complaint the remainder of the shift.
[2023-09-25] MEDS: humaLOG 100 UNITS/ML 10ML VIAL (SSI) SQ ×3 (06:07→21:33)
[2023-09-25] MEDS: FLUTICASONE/SALMETEROL 250/50MCG DISKUS 1 PUFF IH ×2 (06:44→18:51)
[2023-09-25 06:47] LABS: POC Glucose,Bedside 175 (70-110)
[2023-09-25 07:08] LABS: Alanine Aminotransferase 41 U/L (12-78); Albumin Level 3.2 g/dl (3.5-5.0); Albumin/Globulin Ratio 1.2 (1.1-1.8); Alkaline Phosphatase 64 U/L (38-126); Anion Gap 11.3 mEq/L (5-15); Aspartate Amino Transferase 23 U/L (17-59); Bilirubin,Total 0.7 mg/dl (0.2-1.3); Blood Urea Nitrogen 28 mg/dl (9-20); Calcium 8.4 mg/dl (8.4-10.2); Carbon Dioxide 24 mmol/L (22.0-30.0); Chloride 106 mmol/L (98-107); Creatinine Clearance Estimated 80 mL/min (50-200); Estimated Glomerular Filt Rate 68 ml/min (>60); GFR (African American) 82 ML/MIN (>60); Globulin 2.7 g/dL (1.3-3.2); Glucose 186 mg/dl (74-100); Magnesium 1.7 mg/dl (1.6-2.3); Potassium 3.3 mmoL/L (3.5-5.1); Sodium 138 mmol/L (136-145); Total Protein,Serum 5.9 g/dl (6.3-8.2)
[2023-09-25] MEDS: VANCOMYCIN/WATER FOR INJ (PEG) 1.25 GM/250 ML PIGGYBACK IV (07:38)
[2023-09-25] MEDS: IRBESARTAN 75MG TABLET 75 MG PO ×2 (07:39→21:33)
[2023-09-25] MEDS: CARVEDILOL 25MG TABLET 25 MG PO ×2 (07:39→21:33)
[2023-09-25] MEDS: ENOXAPARIN 40MG/0.4ML SYRINGE 40 MG SQ (07:39)
[2023-09-25] MEDS: ASPIRIN EC 81MG TABLET 81 MG PO (07:39)
[2023-09-25 08:00] LABS: Basophils % 0.1 % (0.1-2.0); Hematocrit 37.2 % (42.0-52.0); Lymphocytes # 0.4 K/mm3 (0.7-4.5); Lymphocytes % 3.2 % (10-50); Mean Corpuscular HGB Conc 31.8 g/dL (31.8-35.4); Mean Corpuscular Hemoglobin 31.1 pg (27.0-31.2); Mean Corpuscular Volume 97.7 fl (80-94); Mean Platelet Volume 7.2 fl (7.4-10.4); Monocytes # 0.2 K/mm3 (0.1-1.0); Monocytes % 1.7 % (1.7-9.3); Neutrophils # 11.1 K/mm3 (1.8-7.8); Platelet Count 249 K/mm3 (142-424); Red Blood Count 3.81 M/mm3 (4.60-6.20); Red Cell Distribution Width 14.7 % (11.5-17.5); White Blood Count 11.7 K/mm3 (4.8-10.8)
[2023-09-25 08:03] LABS: MANUAL DIFFERENTIAL MANUAL DIFFERENTIAL (MANUAL DIFF)
[2023-09-25 09:56] LABS: Lymphocytes % 5 % (10-50); Neutrophils % 95 % (42-76); Platelet Estimate Normal; RBC Morphology Normal; Total Cells Counted 100
[2023-09-25 10:06] LABS: POC Glucose,Bedside 171 (70-110)
[2023-09-25 10:10] LABS: Hemoglobin 11.9 g/dL (14.1-18.0)
--- NOTE | 2023-09-25 11:16 | PC.NURSE ---
PATIENT AMBULATED ONE LAP AROUND UNIT @1045 WITH NO OXYGEN AND STANDBY ASSISTANCE FROM THIS NURSE AIDE. PATIENT IS BACK IN ROOM SITTING ON SIDE OF BED. OXYGEN SATURATION LEVEL IS READING AT 91% @1115. NURSE WAS NOTIFIED. PATIENT WAS GIVEN A NEW PITCHER OF ICE WATER UPON REQUEST. CALL LIGHT IS WITH IN REACH AND FAMILY IS AT BS.
[2023-09-25] MEDS: CLINDAMYCIN PHOSPHATE/D5W 900 MG/50 ML PIGGYBACK 100 MG IV ×3 (11:27→22:16)
--- NOTE | 2023-09-25 11:48 | EXP.ACUTE.PN ---
Subjective *Date: 09/25/23 *Time: 14:54 Interval history: Patient states he is feeling little bit better this morning. Still on supplemental oxygen this morning at 2 L, weaning as tolerated. Not coughing as much sputum. Coughed up sample yesterday that looked like stomach contents as it was light green and thin liquid. No nausea or vomiting. Tolerating p.o. intake. Afebrile. White cell count showing improvement on labs down from 17-11. Medical Exam Vital signs and Labs for Last 24 Hours: Vital Signs Temp Pulse Pulse Resp BP BP Pulse Ox 09/25/23 11:43 09/25/23 11:16 98.2 F 76 18 104/61 L 91 L 09/25/23 10:01 09/25/23 07:45 09/25/23 07:44 09/25/23 07:36 97.9 F 81 20 111/73 94 L 09/25/23 06:47 09/25/23 06:45 78 09/25/23 06:45 74 09/25/23 06:45 96 09/25/23 05:00 09/25/23 04:00 98.0 F 79 16 108/71 L 94 L 09/25/23 03:00 09/25/23 01:00 09/25/23 00:07 100 H 09/25/23 00:07 101 H 09/25/23 00:00 97.9 F 100 H 16 118/74 92 L 09/24/23 23:00 09/24/23 21:00 09/24/23 20:00 95 09/24/23 19:49 97.9 F 96 H 16 103/70 L 95 09/24/23 18:37 98 H 09/24/23 18:37 101 H 09/24/23 18:37 94 L 09/24/23 17:52 09/24/23 15:14 98.3 F 97 H 20 136/86 91 L 09/24/23 15:13 09/24/23 15:00 09/24/23 14:45 98.4 F 93 H 22 113/74 09/24/23 14:30 99 H 30 H 94 L 09/24/23 14:00 94 H 25 H 94 L 09/24/23 13:30 100 H 30 H 93 L 09/24/23 13:00 104 H 14 89 L 09/24/23 12:30 105 H 22 92 L O2 Del Method O2 Flow Rate 09/25/23 11:43 Room Air 09/25/23 11:16 Room Air 09/25/23 10:01 Nasal Cannula 2 09/25/23 07:45 Nasal Cannula 09/25/23 07:44 Nasal Cannula 2 09/25/23 07:36 Nasal Cannula 2 09/25/23 06:47 Nasal Cannula 2 09/25/23 06:45 09/25/23 06:45 09/25/23 06:45 Nasal Cannula 2 09/25/23 05:00 Nasal Cannula 2 09/25/23 04:00 Nasal Cannula 3.5 09/25/23 03:00 Nasal Cannula 2 09/25/23 01:00 Nasal Cannula 2 09/25/23 00:07 09/25/23 00:07 09/25/23 00:00 Nasal Cannula 2 09/24/23 23:00 Nasal Cannula 2 09/24/23 21:00 Nasal Cannula 2 09/24/23 20:00 Nasal Cannula 2 09/24/23 19:49 Nasal Cannula 2 09/24/23 18:37 09/24/23 18:37 09/24/23 18:37 Nasal Cannula 2 09/24/23 17:52 Nasal Cannula 2 09/24/23 15:14 Room Air 09/24/23 15:13 Nasal Cannula 2 09/24/23 15:00 Nasal Cannula 2 09/24/23 14:45 09/24/23 14:30 Room Air 09/24/23 14:00 Room Air 09/24/23 13:30 Room Air 09/24/23 13:00 09/24/23 12:30 Intake and Output 09/24/23 09/25/23 09/25/23 23:59 07:59 15:59 Intake Total 535 / 535 540 / 790 250 / 790 Output Total 300 / 300 400 / 400 Balance 235 / 235 140 / 390 250 / 390 Intake: Intake, Oral Amount 535 / 535 540 / 540 Intake, Total IV Amount 250 / 250 Vancomycin/Water For Inj (Peg) 250 / 250 1.25 gm In 250 ml @ 125 mls/hr IV Q18H [facility] Rx#:[id number] Output: Output, Urine Amount 300 / 300 400 / 400 Other: Number of Unmeasured Voids 0 0 Weight 80.796 kg 79.787 kg Patient Weight 09/25/23 23:59 Weight 79.787 kg Laboratory Results - last 24 hr 09/24/23 11:36: WBC 17.9 H, RBC 4.44 L, Hgb 13.7 L, Hct 43.4, MCV 97.8 H, MCH 30.9, MCHC 31.6 L, RDW 14.8, Plt Count 284, MPV 7.2 L, Neut % (Auto) 91.7 H, Lymph % (Auto) 4.1 L, [place] % (Auto) 3.4, Eos % (Auto) 0.6, Baso % (Auto) 0.2, Neut # (Auto) 16.4 H, Lymph # (Auto) 0.7, [place] # (Auto) 0.6, Eos # (Auto) 0.1, Baso # (Auto) 0.0, Total Counted 100, Neutrophils % (Manual) 88 H, Lymphocytes % (Manual) 10, Monocytes % (Manual) 2, Platelet Estimate Normal, RBC Morphology Normal, Sodium 140, Potassium 3.5, Chloride 107, Carbon Dioxide 25, Anion Gap 11.5, BUN 20, Creatinine 1.30 H, Estimated Creat Clear 68, Estimated GFR 56 L, Est GFR ( Amer) 68, Glucose 115 H, Hemoglobin A1c 5.6, Calcium 8.8, Total Bilirubin 0.9, AST 32, ALT 57, Alkaline Phosphatase 78, NT-Pro-B Natriuret Pep 1280 H, Total Protein 6.7, Albumin 3.6, Globulin 3.1, Albumin/Globulin Ratio 1.2, Procalcitonin 0.428 09/24/23 11:43: VBG pH 7.38, VBG pCO2 38.9, VBG pO2 33.1, VBG HCO3 22.2 L, VBG Total CO2 23.4, VBG O2 Saturation 62.2, VBG Base Excess -3.0 L, VBG Lactic Acid 3.5 H 09/24/23 16:09: POC Glucose 153 H 09/24/23 16:22: Lactate 1.7 09/24/23 20:46: POC Glucose 215 H 09/25/23 06:05: POC Glucose 175 H 09/25/23 06:20: WBC 11.7 H D, RBC 3.81 L, Hgb 11.9 L D, Hct 37.2 L, MCV 97.7 H, MCH 31.1, MCHC 31.8, RDW 14.7, Plt Count 249, MPV 7.2 L, Neut % (Auto) 95.0 H, Lymph % (Auto) 3.2 L, [place] % (Auto) 1.7, Eos % (Auto) 0.0 L, Baso % (Auto) 0.1, Neut # (Auto) 11.1 H, Lymph # (Auto) 0.4 L, [place] # (Auto) 0.2, Eos # (Auto) 0.0, Baso # (Auto) 0.0, Total Counted 100, Neutrophils % (Manual) 95 H, Lymphocytes % (Manual) 5 L, Platelet Estimate Normal, RBC Morphology Normal, Sodium 138, Potassium 3.3 L, Chloride 106, Carbon Dioxide 24, Anion Gap 11.3, BUN 28 H D, Creatinine 1.10, Estimated Creat Clear 80, Estimated GFR 68, Est GFR ( Amer) 82 D, Glucose 186 H D, Calcium 8.4, Magnesium 1.7, Total Bilirubin 0.7, AST 23 D, ALT 41 D, Alkaline Phosphatase 64, Total Protein 5.9 L, Albumin 3.2 L D, Globulin 2.7, Albumin/Globulin Ratio 1.2 09/25/23 09:59: POC Glucose 171 H I & O for Labs for Last 24 Hours: Intake & Output 09/22/23 09/23/23 09/24/23 09/25/23 23:59 23:59 23:59 23:59 Intake Total 535 / 535 790 / 790 Output Total 300 / 300 400 / 400 Balance 235 / 235 390 / 390 Weight 80.796 kg 79.787 kg Constitutional: Present no acute distress, average body habitus, chronically ill appearing and cooperative Head: Present atraumatic and normocephalic ENT: Present normal exam Neck: Present normal inspection Respiratory: Present prolonged expiratory phase, rhonchi, crackles (Right posterior lung field) and normal respiratory effort; Absent wheezes Cardiac: Present Reg Rate and Rhythm GI: Present soft and normal bowel sounds; Absent distention or tenderness Rectal (male): Present deferred Extremities: Present normal inspection and full ROM Skin: Present intact; Absent erythema Neuro: Present Grossly Intact, alert, awake, oriented x 3 and moves all extremities Assessment and Plan *Assessment and plan (1) Sepsis: Status: Acute Category: Medical Code(s): A41.9 - Sepsis, unspecified organism (2) Pneumonia: Status: Acute Category: Medical Code(s): J18.9 - Pneumonia, unspecified organism (3) Acute on chronic diastolic heart failure: Status: Acute Category: Medical Code(s): I50.33 - Acute on chronic diastolic (congestive) heart failure (4) Acute exacerbation of chronic obstructive pulmonary disease: Status: Acute Category: Medical Code(s): J44.1 - Chronic obstructive pulmonary disease with (acute) exacerbation (5) Type 2 diabetes mellitus with diabetic peripheral angiopathy without gangrene: Status: Acute Category: Medical Code(s): E11.51 - Type 2 diabetes mellitus with diabetic peripheral angiopathy without gangrene (6) Anxiety: Status: Acute Category: Medical Code(s): F41.9 - Anxiety disorder, unspecified (7) Hypertensive heart disease: Status: Chronic Qualifiers: Heart failure presence: without heart failure Qualified Code(s): I11.9 - Hypertensive heart disease without heart failure Category: Medical Code(s): I11.9 - Hypertensive heart disease without heart failure Plan 62-year-old male with persistent respiratory symptoms concerning for prolonged pneumonia or recurrent pneumonia over the past 4 weeks. Presented to the ER with shortness of breath, productive cough. Chest imaging with prominent fissures bilaterally. White cell count elevated. Patient tachycardic and tachypneic. Meeting sepsis criteria. Concern for pneumonia. PSI/port score of 101 making him class IV risk. Discussed case with ER physician, request admission for IV antibiotics and further treatment. I agreed to admit. Concern for CHF component. Diuresed once yesterday. Showing improvement with breathing. Concern for aspiration given CT findings with patchy airspace disease on right side and his history of esophagectomy with gastric pull-through. Feeling somewhat better today. Continues to require inpatient management. Problems addressed as follows: Sepsis Aspiration pneumonia -Discontinue ceftriaxone and vancomycin. Transition to clindamycin 900 mg every 6 hours IV for aspiration pneumonia. Will monitor overnight, if does well, will transition to oral formulation for transition to home and. -DuoNebs every 6 hours scheduled -Sputum culture pending, blood cultures obtained -Continue daily laba/ICS combo -Supplemental oxygen as needed, currently on 2 L nasal cannula oxygen. Goal sats greater 90%. -CBC, CMP, magnesium ordered for the morning -White cell count improved from 17.9-11.7. Hemoglobin stable. Creatinine improved to 1.1, BUN 28. At baseline. Diabetes: Fingersticks ACHS, A1c 5.6. Sliding scale insulin per protocol. Morning glucose 186 Component of CHF -Blood pressure appropriate, continue irbesartan as formulary conversion 75 mg twice daily Continue carvedilol 25 mg twice daily Continue aspirin 81 mg daily History of esophageal and stomach cancer: -Awaiting formal read on CT. Part of stomach is above the diaphragm. Concern patient is having an aspiration component due to gastric contents in his lower esophagus. -Needs follow-up with GI after discharge for further evaluation.. -Continue PPI nightly Full code Lovenox 40 mg subcu daily Diabetic diet
--- NOTE | 2023-09-25 15:17 | PC.NURSE ---
Aox 4, upadlib, 20g R AC sl, fsbg achs, no c/o pain and call bowie in reach.
[2023-09-25 15:58] LABS: POC Glucose,Bedside 144 (70-110)
[2023-09-25 20:19] LABS: POC Glucose,Bedside 171 (70-110)
[2023-09-25] MEDS: PANTOPRAZOLE 40MG TABLET 40 MG PO (21:33)
[2023-09-26] VITALS (7 sets, daily range): BP systolic 102–131; BP diastolic 62–80; PULSE 65–80; RESP 16–17; TEMP 36.6–37; O2SAT 88–95; BMI 26.9
--- NOTE | 2023-09-26 02:45 | PC.NURSE ---
patient oxygen sats 87-88% while awake, sitting upright in bed. Took deep breaths with no improvement. denies soa. applied 1L NC, no increase. bumped to 2L NC, patient now satting at 90%.
[2023-09-26] MEDS: CLINDAMYCIN PHOSPHATE/D5W 900 MG/50 ML PIGGYBACK 100 MG IV (05:09)
[2023-09-26 05:25] LABS: POC Glucose,Bedside 135 (70-110)
[2023-09-26] MEDS: FLUTICASONE/SALMETEROL 250/50MCG DISKUS 1 PUFF IH (06:09)
[2023-09-26] MEDS: IPRATROPIUM/ALBUTEROL 3 ML NEB IH ×2 (06:09→11:09)
[2023-09-26 07:32] LABS: Basophils % 0.1 % (0.1-2.0); Hematocrit 33.9 % (42.0-52.0); Hemoglobin 10.9 g/dL (14.1-18.0); Lymphocytes # 0.6 K/mm3 (0.7-4.5); Lymphocytes % 5.2 % (10-50); Mean Corpuscular HGB Conc 32.1 g/dL (31.8-35.4); Mean Corpuscular Hemoglobin 31.4 pg (27.0-31.2); Mean Corpuscular Volume 97.9 fl (80-94); Mean Platelet Volume 7.6 fl (7.4-10.4); Monocytes # 0.4 K/mm3 (0.1-1.0); Monocytes % 3.5 % (1.7-9.3); Neutrophils # 10.6 K/mm3 (1.8-7.8); Neutrophils % 91.2 % (37.0-80.0); Platelet Count 241 K/mm3 (142-424); Red Blood Count 3.46 M/mm3 (4.60-6.20); Red Cell Distribution Width 14.7 % (11.5-17.5); White Blood Count 11.7 K/mm3 (4.8-10.8)
[2023-09-26 07:34] LABS: Albumin Level 2.9 g/dl (3.5-5.0); Chloride 106 mmol/L (98-107); Potassium 3.5 mmoL/L (3.5-5.1); Sodium 137 mmol/L (136-145)
[2023-09-26 07:35] LABS: MANUAL DIFFERENTIAL MANUAL DIFFERENTIAL (MANUAL DIFF)
[2023-09-26 07:37] LABS: Alanine Aminotransferase 34 U/L (12-78); Alkaline Phosphatase 60 U/L (38-126); Anion Gap 6.5 mEq/L (5-15); Aspartate Amino Transferase 23 U/L (17-59); Bilirubin,Total 0.4 mg/dl (0.2-1.3); Blood Urea Nitrogen 28 mg/dl (9-20); Calcium 8.3 mg/dl (8.4-10.2); Carbon Dioxide 28 mmol/L (22.0-30.0); Creatinine Clearance Estimated 74 mL/min (50-200); Estimated Glomerular Filt Rate 62 ml/min (>60); GFR (African American) 74 ML/MIN (>60); Glucose 136 mg/dl (74-100); Total Protein,Serum 5.5 g/dl (6.3-8.2)
[2023-09-26 07:38] LABS: Albumin/Globulin Ratio 1.1 (1.1-1.8); Globulin 2.6 g/dL (1.3-3.2)
--- NOTE | 2023-09-26 07:44 | PC.NURSE ---
RA obtained on pt resulting 90%.
[2023-09-26 07:48] LABS: Lymphocytes % 5 % (10-50); Monocytes % 6 % (2-9); Neutrophils % 89 % (42-76); Total Cells Counted 100
[2023-09-26 07:49] LABS: Platelet Estimate Normal; RBC Morphology Normal
--- NOTE | 2023-09-26 08:04 | P.DS_ITS ---
General Admission date:: 09/24/23 Discharge date: 09/26/23 HPI HPI HPI: Mr. Botello is a 62-year-old male with history of COPD, diastolic heart failure, emphysema, hypertension, former smoker with history of esophageal and stomach cancer removed 2 years ago. Presented to the ER with persistent shortness of breath. Originally diagnosed with pneumonia 4 weeks ago by his PCP. Was treated with another round of antibiotics a week ago and just finished his steroids. Has not gotten much better and started feeling more short of breath this morning accompanied by vomiting and a headache. Patient states has had some chills but no cony fever. Denies any chest pain. O2 sats in the high 80s low 90s on presentation to the ER. Repeat imaging obtained showing prominent fissures. White cell count [id number]. Kidney function at baseline with creatinine 1.3. BNP also noted to be elevated at almost 1300. Concern for persistent pneumonia and failure of outpatient therapy with component of CHF. Medicine consulted for admission and further management. On arrival to the floor, patient having productive cough of thin sputum. Is afebrile. Alert and oriented x 4. On 2 L with improved O2 sats. Does not recall being told he has heart failure however has an echo from 2020 showing diastolic dysfunction. Not on a diuretic at home. Hospital Course Hospital Course Hospital Course: Patient had an oxygen saturation of 88% on day of discharge while at rest on room air Exam Data for Last 24 hours Vital signs and Labs for Last 24 Hours: Temp Pulse Resp BP Pulse Ox O2 Del Method O2 Flow Rate 97.8 F 71 17 102/62 L 90 L Room Air 2 09/26/23 07:42 09/26/23 07:42 09/26/23 07:42 09/26/23 07:42 09/26/23 07:42 09/26/23 07:42 09/26/23 06:41 Laboratory Results - last 24 hr 09/25/23 06:20: Hgb 11.9 L D, Total Counted 100, Neutrophils % (Manual) 95 H, Lymphocytes % (Manual) 5 L, Platelet Estimate Normal, RBC Morphology Normal 09/25/23 09:59: POC Glucose 171 H 09/25/23 15:51: POC Glucose 144 H 09/25/23 20:08: POC Glucose 171 H 09/26/23 05:10: POC Glucose 135 H 09/26/23 06:03: WBC 11.7 H, RBC 3.46 L, Hgb 10.9 L, Hct 33.9 L, MCV 97.9 H, MCH 31.4 H, MCHC 32.1, RDW 14.7, Plt Count 241, MPV 7.6, Neut % (Auto) 91.2 H, Lymph % (Auto) 5.2 L, [place] % (Auto) 3.5, Eos % (Auto) 0.0 L, Baso % (Auto) 0.1, Neut # (Auto) 10.6 H, Lymph # (Auto) 0.6 L, [place] # (Auto) 0.4, Eos # (Auto) 0.0, Baso # (Auto) 0.0, Total Counted 100, Neutrophils % (Manual) 89 H, Lymphocytes % (Manual) 5 L, Monocytes % (Manual) 6, Platelet Estimate Normal, RBC Morphology Normal, Sodium 137, Potassium 3.5, Chloride 106, Carbon Dioxide 28, Anion Gap 6.5, BUN 28 H, Creatinine 1.20, Estimated Creat Clear 74, Estimated GFR 62, Est GFR ( Amer) 74, Glucose 136 H D, Calcium 8.3 L, Magnesium 2.0 D, Total Bilirubin 0.4, AST 23, ALT 34, Alkaline Phosphatase 60, Total Protein 5.5 L, Albumin 2.9 L, Globulin 2.6, Albumin/Globulin Ratio 1.1 I & O for Last 24 hours: Intake & Output 09/23/23 09/24/23 09/25/23 09/26/23 23:59 23:59 23:59 23:59 Intake Total 535 / 535 2230 / 2230 240 / 240 Output Total 300 / 300 950 / 950 0 / 0 Balance 235 / 235 1280 / 1280 240 / 240 Weight 80.796 kg 79.7 kg 80.739 kg Microbiology Reports for the Last 24 Hours: Microbiology 09/25/23 17:20 Sputum - Expectorated Sputum Gram Stain - Final 09/24/23 12:25 Blood Blood Culture - Preliminary NO GROWTH AFTER 24 HOURS 09/24/23 11:50 Blood Blood Culture - Preliminary NO GROWTH AFTER 24 HOURS Results Data Completed and Pending Labs on day of discharge: Labs from last 24 hours 09/26/23 09/26/23 09/25/23 06:03 05:10 20:08 WBC 11.7 H RBC 3.46 L Hgb 10.9 L Hct 33.9 L MCV 97.9 H MCH 31.4 H MCHC 32.1 RDW 14.7 Plt Count 241 MPV 7.6 Neut % (Auto) 91.2 H Lymph % (Auto) 5.2 L Lanier % (Auto) 3.5 Eos % (Auto) 0.0 L Baso % (Auto) 0.1 Neut # (Auto) 10.6 H Lymph # (Auto) 0.6 L Lanier # (Auto) 0.4 Eos # (Auto) 0.0 Baso # (Auto) 0.0 Total Counted 100 Neutrophils % (Manual) 89 H Lymphocytes % (Manual) 5 L Monocytes % (Manual) 6 Platelet Estimate Normal RBC Morphology Normal Sodium 137 Potassium 3.5 Chloride 106 Carbon Dioxide 28 Anion Gap 6.5 BUN 28 H Creatinine 1.20 Estimated Creat Clear 74 Estimated GFR 62 Est GFR ( Amer) 74 Glucose 136 H D POC Glucose 135 H 171 H Calcium 8.3 L Magnesium 2.0 D Total Bilirubin 0.4 AST 23 ALT 34 Alkaline Phosphatase 60 Total Protein 5.5 L Albumin 2.9 L Globulin 2.6 Albumin/Globulin Ratio 1.1 09/25/23 09/25/23 09/25/23 15:51 09:59 06:20 WBC RBC Hgb 11.9 L D Hct MCV MCH MCHC RDW Plt Count MPV Neut % (Auto) Lymph % (Auto) Lanier % (Auto) Eos % (Auto) Baso % (Auto) Neut # (Auto) Lymph # (Auto) Lanier # (Auto) Eos # (Auto) Baso # (Auto) Total Counted 100 Neutrophils % (Manual) 95 H Lymphocytes % (Manual) 5 L Monocytes % (Manual) Platelet Estimate Normal RBC Morphology Normal Sodium Potassium Chloride Carbon Dioxide Anion Gap BUN Creatinine Estimated Creat Clear Estimated GFR Est GFR ( Amer) Glucose POC Glucose 144 H 171 H Calcium Magnesium Total Bilirubin AST ALT Alkaline Phosphatase Total Protein Albumin Globulin Albumin/Globulin Ratio Preliminary micro results at discharge 09/24/23 12:25 Blood Culture - Preliminary Blood NO GROWTH AFTER 24 HOURS 09/24/23 11:50 Blood Culture - Preliminary Blood NO GROWTH AFTER 24 HOURS DS: Diagnosis Discharge Diagnosis (1) Sepsis: Status: Acute Code(s): A41.9 - Sepsis, unspecified organism (2) Pneumonia: Status: Acute Code(s): J18.9 - Pneumonia, unspecified organism (3) Acute on chronic diastolic heart failure: Status: Acute Code(s): I50.33 - Acute on chronic diastolic (congestive) heart failure (4) Acute exacerbation of chronic obstructive pulmonary disease: Status: Acute Code(s): J44.1 - Chronic obstructive pulmonary disease with (acute) exacerbation (5) Type 2 diabetes mellitus with diabetic peripheral angiopathy without gangrene: Status: Acute Code(s): E11.51 - Type 2 diabetes mellitus with diabetic peripheral angiopathy without gangrene (6) Anxiety: Status: Acute Code(s): F41.9 - Anxiety disorder, unspecified (7) Hypertensive heart disease: Status: Chronic Code(s): I11.9 - Hypertensive heart disease without heart failure Qualifiers: Heart failure presence: without heart failure Qualified Code(s): I11.9 - Hypertensive heart disease without heart failure Meds Home Medications and Allergies Home Medications ?Medication ?Instructions ?Recorded ?Confirmed ?Type budesonide-formoterol HFA 160 2 puff inhalation BID 90 days 07/24/21 09/24/23 Rx mcg-4.5 mcg/actuation aerosol #10.2 grams inhaler aspirin 81 mg tablet,delayed 81 mg PO DAILY 02/13/22 09/24/23 History release carvedilol 25 mg tablet 25 mg PO BID #180 tabs 02/13/22 09/24/23 Rx losartan 50 mg tablet 50 mg PO BID #60 tabs 02/17/23 09/24/23 Rx amlodipine 5 mg tablet 5 mg PO DAILY 08/19/23 09/24/23 History metoclopramide HCl 10 mg tablet 5 mg PO QID 08/19/23 09/24/23 History albuterol sulfate 90 mcg/actuation 2 inh inhalation QIDP PRN 09/24/23 09/24/23 History aerosol inhaler shortness of breath or wheezing omeprazole 40 mg capsule,delayed 40 mg PO DAILY 09/24/23 09/24/23 History release ondansetron 8 mg disintegrating 8 mg PO BIDP PRN Nausea And 09/24/23 09/24/23 History tablet Vomiting clindamycin HCl 150 mg capsule 450 mg (3 x 150 mg) PO TID 5 days 09/26/23 Rx #45 caps New Prescriptions to Start Prescriptions: clindamycin HCl Alexey Hurtado Allergies Allergy/AdvReac Type Severity Reaction Status Date / Time lisinopril AdvReac Severe unknown Verified 08/19/23 08:48 Discharge Plan Disposition Patient Disposition: Home, Self-Care Condition: Fair Discharge Order Discharge Orders: Discharge Order (Routine); Ordered 09/26/23 Ordered By: Alexey Hurtado Follow up Plan Follow up with: Sydney Hager [Primary Care Provider] - 10/07/23 4:00 pm Simon Xavier [Referring] - Enter time for follow up (office to call patient with appointment. ) Prescriptions/Medication Reconciliation: New clindamycin HCl 150 mg capsule 450 mg PO TID 5 Days Qty: 45 0RF Continued losartan 50 mg tablet 50 mg PO BID Qty: 60 3RF metoclopramide HCl 10 mg tablet 5 mg PO QID Patient Comments: TAKE 1/2 TABLET BY MOUTH THREE TIMES DAILY budesonide-formoterol 160-4.5 mcg/actuation HFA aerosol inhaler 2 puff IH BID 90 Days Qty: 10.2 3RF aspirin 81 mg tablet,delayed release (DR/EC) 81 mg PO DAILY carvedilol 25 mg tablet 25 mg PO BID Qty: 180 3RF omeprazole 40 mg capsule,delayed release(DR/EC) 40 mg PO DAILY Patient Comments: Take 1 capsule every day by oral route, for acid reflux. ondansetron 8 mg tablet,disintegrating 8 mg PO BIDP PRN (Reason: Nausea And Vomiting) Patient Comments: dissolve 1 tablet on tongue twice a day as needed for nausea and vomiting albuterol sulfate 90 mcg/actuation HFA aerosol inhaler 2 inh IH QIDP PRN (Reason: shortness of breath or wheezing) Held amlodipine 5 mg tablet 5 mg PO DAILY Hold Instructions: Pending reevaluation with PCP and follow-up with blood pressure reading Patient Comments: Take 1 tablet every day by oral route, for BP. Discontinued levofloxacin 750 mg tablet 750 mg PO DAILY 10 Days Qty: 10 0RF Other Ambulatory Orders: Home Medical Equipment (Routine) Location: None Selected Ordered By: Alexey Hurtado Problem Reconciliation Problems Reviewed?: Yes Patient Discharge Instructions ACTIVITY: Continue current activity DIET: continue same diet Patient Instructions: DI for Heart Failure, DI for Pneumonia -- Adult, DI for Sepsis -- Adult Print Language: Citizen Of [place] Providers Primary Care Provider: Sydney Hager Admit Provider: Alexey Hurtado Attending Provider: Alexey Hurtado
--- NOTE | 2023-09-26 08:14 | PC.NURSE ---
Addendum entered by Bhargavi Suh RN 09/26/23 08:51: Pt was at rest while obtaining RA at 88%. Original Note: Pt placed back on O2 NC after noted to be 88% on RA. Pt placed on 1.5 L and titrated down to 1 L. O2 sat currently 93%.
[2023-09-26] MEDS: ASPIRIN EC 81MG TABLET 81 MG PO (08:56)
[2023-09-26] MEDS: ACETAMINOPHEN 325MG TAB 650 MG PO (08:56)
[2023-09-26] MEDS: IRBESARTAN 75MG TABLET 75 MG PO (08:56)
[2023-09-26] MEDS: CARVEDILOL 25MG TABLET 25 MG PO (08:56)
[2023-09-26 10:32] LABS: POC Glucose,Bedside 119 (70-110)
--- NOTE | 2023-09-28 12:53 | CARE MANAGER ---
Called and spoke with patient regarding recent discharge. Patient stated that he is feeling better, has started new medication and aware of f/u appts. No concerns voiced at time of call.
--- NOTE | 2023-09-29 23:57 | PC.NURSE ---
blood cx results after 5 days, final report= no growth shown.
== END 2023-09-26 11:36 | disposition home or self-care (01) | DRG 177 ==
LOC: ER 12:07 → 2ND 14:19
PROVIDERS: Admitting Provider Internal Medicine Adolescent Medicine; Emergency Provider Emergency Medicine; PCP Nurse Practitioner Family; Visit Provider Internal Medicine Adolescent Medicine
DX: J69.0 Pneumonitis due to inhalation of food and vomit (principal); J44.1 Chronic obstructive pulmonary disease with (acute) exacerbation; I11.0 Hypertensive heart disease with heart failure; E11.51 Type 2 diabetes mellitus with diabetic peripheral angiopathy without gangrene; F41.9 Anxiety disorder, unspecified; I50.33 Acute on chronic diastolic (congestive) heart failure; Z79.899 Other long term (current) drug therapy; Z87.891 Personal history of nicotine dependence; Z85.01 Personal history of malignant neoplasm of esophagus; Z85.028 Personal history of other malignant neoplasm of stomach
CPT/HCPCS: 36415; 71046; 71250; 80053; 82803; 82962; 83036; 83605; 83735; 83880; 84145; 85007; 85025; 85027; 87040; 87070; 87077; 87186; 87205; 94640; 94761; 99291; J0696; J1650; J2919; J7120; J7620

== ENCOUNTER 2023-09-30 18:49 | Emergency (ER) | payer MEDICARE, MEDICAID, SELFPAY ==
[2023-09-30 18:50] VITALS: BP 115/83; PULSE 102; RESP 18; TEMP 37.1; O2SAT 97; BMI 26.1
--- NOTE | 2023-09-30 19:07 | ED_ITS ---
<Statement entered by Perla Bass DO - 10/01/23 00:13> I was consulted by the [facility], and we discussed the complexity of the problems being addressed. I approved the treatment and management plan for this patient's care in the emergency department, thus performing a substantive portion of the medical decision making. Perla Bass DO Discharge Plan Disposition Patient Disposition: Home, Self-Care Condition: Good Prescriptions Prescriptions: No Action losartan 50 mg tablet 50 mg PO BID Qty: 60 3RF amlodipine 5 mg tablet 5 mg PO DAILY Patient Comments: Take 1 tablet every day by oral route, for BP. metoclopramide HCl 10 mg tablet 5 mg PO QID Patient Comments: TAKE 1/2 TABLET BY MOUTH THREE TIMES DAILY budesonide-formoterol 160-4.5 mcg/actuation HFA aerosol inhaler 2 puff IH BID 90 Days Qty: 10.2 3RF aspirin 81 mg tablet,delayed release (DR/EC) 81 mg PO DAILY carvedilol 25 mg tablet 25 mg PO BID Qty: 180 3RF omeprazole 40 mg capsule,delayed release(DR/EC) 40 mg PO DAILY Patient Comments: Take 1 capsule every day by oral route, for acid reflux. ondansetron 8 mg tablet,disintegrating 8 mg PO BIDP PRN (Reason: Nausea And Vomiting) Patient Comments: dissolve 1 tablet on tongue twice a day as needed for nausea and vomiting albuterol sulfate 90 mcg/actuation HFA aerosol inhaler 2 inh IH QIDP PRN (Reason: shortness of breath or wheezing) doxycycline hyclate 100 mg capsule 100 mg PO BID 7 Days Qty: 14 0RF Referrals Follow up/Referrals: Sydney Hager [Primary Care Provider] - See instructions Activity Restrictions/Add. Instructions Additional Instructions/Restrictions: Discussed please follow-up with your doctor at [facility] tomorrow. Please try to stay sitting up. Return to the ER as needed for any worsening signs or symptoms. Clinical Impressions Clinical Impression: Cough present for greater than 3 weeks, Chronic pulmonary aspiration Instructions Patient Instructions: Cough Print Language Print Language: Nauruan Discharge ED Provider: Perla Bass HPI <ALEIDA Reeves - Last Filed: 10/01/23 00:11> General Chief Complaint: Shortness of Breath/Dyspnea Stated Complaint: SOA Time Seen by Provider: 09/30/23 19:07 History of Present Illness HPI narrative: Patient presents for evaluation of intractable cough, shortness of breath. Patient was recently admitted for aspiration pneumonia and discharged on oral medication. He actually had a medication change done by the hospital medicine and he picked up that medicine today. However patient presents with worsening shortness of breath despite home treatment. Patient is on chronic home oxygen and has a history of lung and stomach cancer status post esophageal resection with gastric pull-through. Patient denies fever chills hemoptysis hematochezia melena hematemesis. He has no reported increase in oxygen requirement. He does not however have a home nebulizer machine. Related Data Home Medications ?Medication ?Instructions ?Recorded ?Confirmed aspirin 81 mg tablet,delayed 81 mg PO DAILY 02/13/22 09/24/23 release amlodipine 5 mg tablet 5 mg PO DAILY 08/19/23 09/24/23 metoclopramide HCl 10 mg tablet 5 mg PO QID 08/19/23 09/24/23 albuterol sulfate 90 mcg/actuation 2 inh inhalation QIDP PRN 09/24/23 09/24/23 aerosol inhaler shortness of breath or wheezing omeprazole 40 mg capsule,delayed 40 mg PO DAILY 09/24/23 09/24/23 release ondansetron 8 mg disintegrating 8 mg PO BIDP PRN Nausea And 09/24/23 09/24/23 tablet Vomiting Previous Rx's ?Medication ?Instructions ?Recorded budesonide-formoterol HFA 160 2 puff inhalation BID 90 days 07/24/21 mcg-4.5 mcg/actuation aerosol #10.2 grams inhaler carvedilol 25 mg tablet 25 mg PO BID #180 tabs 02/13/22 losartan 50 mg tablet 50 mg PO BID #60 tabs 02/17/23 doxycycline hyclate 100 mg capsule 100 mg PO BID 7 days #14 caps 09/30/23 Allergies Allergy/AdvReac Type Severity Reaction Status Date / Time lisinopril AdvReac Severe unknown Verified 08/19/23 08:48 [facility] <ALEIDA Reeves - Last Filed: 10/01/23 00:11> [facility] Disclaimer: The information contained in this section may have been updated after the patient was seen, as this information can be updated by other users. Medical History Stopped smoking with greater than 30 pack year history Smoking greater than 30 pack years History of sleep apnea PVC (premature ventricular contraction) Narcotic drug use COPD (chronic obstructive pulmonary disease) Claudication Bilateral leg pain Erectile dysfunction Emphysema lung Other forms of angina pectoris Anxiety Tobacco abuse counseling Surgical History History of colonoscopy History of esophagogastroduodenoscopy (EGD) Social History Smoking Status: Former smoker tobacco type: cigarettes packs per day: 1 alcohol intake: current alcohol intake frequency: a few times a week counseling provided: none substance use type: denies use current occupational status: employed Travel in the last 8 weeks: None <ALEIDA Reeves - Last Filed: 10/01/23 00:11> ROS Obtained: Yes Systems reviewed as appropriate & no additional complaints except as documented Physical Exam <ALEIDA Reeves - Last Filed: 10/01/23 00:11> General General appearance: alert and in no apparent distress Head Head exam: atraumatic and normal inspection Respiratory Respiratory exam: Present normal lung sounds bilaterally and wheezes (And expiratory wheezes); Absent respiratory distress Cardiovascular Cardiovascular exam: Present regular rate and normal rhythm Abdominal Exam Abdominal exam: Present soft and normal bowel sounds; Absent tenderness Extremities Exam Extremities exam: Present normal inspection and full ROM Back Exam Back exam: Present normal inspection and full ROM Neurological Exam Neurological exam: Present alert and oriented X3 Psychiatric Psychiatric exam: Present normal affect and normal mood Skin Skin exam: Present warm, dry and normal color HEART Score <ALEIDA Reeves Last Filed: 10/01/23 00:11> HEART Score HEART Score assessment performed?: No Critical Care <ALEIDA Reeves Last Filed: 10/01/23 00:11> Critical Care Time Critical Care Time: No Medical Decision Making <ALEIDA Reeves Last Filed: 10/01/23 00:11> Medical Records Medical records reviewed: Yes I reviewed the patient's medical records. Matthew Inquiry Pt receiving controlled substance: No Vital Signs Vital Signs: 09/30/23 18:50 09/30/23 21:46 09/30/23 21:46 Temperature 98.8 F Temperature Source Oral Pulse Rate 113 H 107 H Pulse Rate [Right Radial] 102 H Respiratory Rate 18 Blood Pressure Blood Pressure [Right Arm] 115/83 Blood Pressure Mean [Right Arm] 93 Blood Pressure Source Blood Pressure Source [Right Arm] Automatic Cuff Blood Pressure Position Blood Pressure Position [Right Arm] Sitting 02 Sat by Pulse Oximetry 97 Oxygen Delivery Method Nasal Cannula Oxygen Flow Rate (LPM) 2 09/30/23 22:58 Temperature 98.7 F Temperature Source Oral Pulse Rate 82 Pulse Rate [Right Radial] Respiratory Rate 18 Blood Pressure 128/72 Blood Pressure [Right Arm] Blood Pressure Mean [Right Arm] Blood Pressure Source Automatic Cuff Blood Pressure Source [Right Arm] Blood Pressure Position Sitting Blood Pressure Position [Right Arm] 02 Sat by Pulse Oximetry Oxygen Delivery Method Nasal Cannula Oxygen Flow Rate (LPM) 2 Lab Data Lab results reviewed: Yes I reviewed the patient's lab results. Labs: Lab Results 09/30/23 19:25: VBG pH 7.36, VBG pCO2 46.2, VBG pO2 32.7, VBG HCO3 25.5, VBG Total CO2 26.9, VBG O2 Saturation 58.4, VBG Base Excess 0.1, VBG Lactic Acid 1.9 09/30/23 20:30: WBC 11.1 H, RBC 4.08 L, Hgb 13.0 L, Hct 39.7 L, MCV 97.3 H, MCH 31.9 H, MCHC 32.8, RDW 14.5, Plt Count 241, MPV 7.5, Neut % (Auto) 84.1 H, Lymph % (Auto) 9.3 L, Calvert % (Auto) 4.6, Eos % (Auto) 1.7, Baso % (Auto) 0.2, Neut # (Auto) 9.3 H, Lymph # (Auto) 1.0, Calvert # (Auto) 0.5, Eos # (Auto) 0.2, Baso # (Auto) 0.0, Sodium 140, Potassium 4.0, Chloride 104, Carbon Dioxide 30, Anion Gap 10.0, BUN 10, Creatinine 1.00, Estimated GFR 76, Est GFR ( Amer) 92, Glucose 94, Calcium 8.8, Magnesium 1.9, Total Bilirubin 1.1, AST 27, ALT 33, Alkaline Phosphatase 74, Total Protein 7.3 D, Albumin 3.8, Globulin 3.5 H, Albumin/Globulin Ratio 1.1, Procalcitonin 0.092 09/30/23 20:30 09/30/23 20:30 Response Orders (Tests/Meds): ED MEDICATIONS Discontinued Medications Generic Name Dose Route Start Last Admin Trade Name Freq PRN Reason Stop Dose Admin Albuterol/Ipratropium 9 ml 09/30/23 19:23 09/30/23 20:48 Ipratropium/Albuterol 3 Ml [facility] 09/30/23 19:24 9 ml ONCE ONE Administration Famotidine 40 mg 09/30/23 22:49 09/30/23 22:52 Famotidine 20mg Tablet PO 09/30/23 22:50 40 mg ONCE ONE Administration Lidocaine HCl 5 ml 09/30/23 21:33 09/30/23 21:46 Lidocaine 2% 5ml Pf Vial 09/30/23 21:34 5 ml ONCE ONE Administration Methylprednisolone Sodium Succinate 125 mg 09/30/23 21:44 09/30/23 21:54 Methylprednisolone Sod Succ 125mg Vial IV 09/30/23 21:45 125 mg ONCE ONE Administration Promethazine HCl 25 mg 09/30/23 21:44 09/30/23 21:50 Promethazine Hcl 25mg/Ml 1ml Vial IV 09/30/23 21:45 25 mg ONCE ONE Administration Sodium Chloride 3 ml 09/30/23 20:35 09/30/23 20:48 Sodium Chloride 3% 15ml [facility] 10/30/23 20:34 3 ml ONCE PRN Administration INDUCE SPUTUM COLLECTION Sodium Chloride 25 ml 09/30/23 21:44 09/30/23 21:50 Sodium Chloride 0.9% 25ml Bag IV 09/30/23 21:45 25 ml ONCE ONE Administration ORDERS Category Date Time Status Chest XR 2 view (NOT portable) [XR chest 2V] Stat Exams 09/30/23 21:32 Completed CBC w/Auto Diff [Complete Blood Count Auto Diff] Stat Lab 09/30/23 20:30 Completed CMP [Comprehensive Metabolic Panel] Stat Lab 09/30/23 20:30 Completed Magnesium Stat Lab 09/30/23 20:30 Completed Procalcitonin Stat Lab 09/30/23 20:30 Completed Blood Culture Stat Micro 09/30/23 20:35 Received Sputum Culture & Gram Stain Stat Micro 09/30/23 21:02 Results VBG [Venous Blood Gas] Stat RT 09/30/23 19:25 Completed MDM Narrative Medical Decision Narrative: In summary patient is a 62-year-old male who presents to the emergency department for evaluation of intractable cough. Patient is hemodynamically stable upon arrival, afebrile. Physical exam is remarkable for a dry cough that actually induces bilious sputum. Patient does have slight expiratory wheezes but has no new oxygen requirement and is in normal sinus rhythm on the bedside monitor. Differential diagnosis includes acid reflux induced cough versus COPD exacerbation versus worsening pneumonia versus PE. Initial workup will be conducted with initially CT imaging of the chest to rule out pulmonary embolus hematologic labs sputum culture. Unfortunately patient cannot lay flat as it induces even more coughing thus we changed to a portable 2 view chest. Initial interventions include DuoNeb steroids epinephrine nebulizer Phenergan Zofran Pepcid. Initial workup reviewed by me shows that his hematologic labs are stable and unchanged since his discharge on the and my informal interpretation of his plain film x-ray shows no stable findings. Upon repeat evaluation patient is able to periodically stop coughing but essentially feels no different nor no worse. Given this we had interim discussion with the patient's presentation which is consistent with not only chronic aspiration but acid reflux induced cough but given his previous surgery with gastric pull- through after esophagectomy he is at high risk of chronic aspiration. We discussed options including outpatient versus inpatient management. The patient directed discharge patient has elected to follow-up tomorrow with the [facility] with Dr. Xavier. <Perla Bass, DO - Last Filed: 09/30/23 20:52> Vital Signs Vital Signs: 09/30/23 18:50 09/30/23 21:46 09/30/23 21:46 Temperature 98.8 F Temperature Source Oral Pulse Rate 113 H 107 H Pulse Rate [Right Radial] 102 H Respiratory Rate 18 Blood Pressure Blood Pressure [Right Arm] 115/83 Blood Pressure Mean [Right Arm] 93 Blood Pressure Source Blood Pressure Source [Right Arm] Automatic Cuff Blood Pressure Position Blood Pressure Position [Right Arm] Sitting 02 Sat by Pulse Oximetry 97 Oxygen Delivery Method Nasal Cannula Oxygen Flow Rate (LPM) 2 09/30/23 22:58 Temperature 98.7 F Temperature Source Oral Pulse Rate 82 Pulse Rate [Right Radial] Respiratory Rate 18 Blood Pressure 128/72 Blood Pressure [Right Arm] Blood Pressure Mean [Right Arm] Blood Pressure Source Automatic Cuff Blood Pressure Source [Right Arm] Blood Pressure Position Sitting Blood Pressure Position [Right Arm] 02 Sat by Pulse Oximetry Oxygen Delivery Method Nasal Cannula Oxygen Flow Rate (LPM) 2 Lab Data Labs: Lab Results 09/30/23 19:25: VBG pH 7.36, VBG pCO2 46.2, VBG pO2 32.7, VBG HCO3 25.5, VBG Total CO2 26.9, VBG O2 Saturation 58.4, VBG Base Excess 0.1, VBG Lactic Acid 1.9 09/30/23 20:30: WBC 11.1 H, RBC 4.08 L, Hgb 13.0 L, Hct 39.7 L, MCV 97.3 H, MCH 31.9 H, MCHC 32.8, RDW 14.5, Plt Count 241, MPV 7.5, Neut % (Auto) 84.1 H, Lymph % (Auto) 9.3 L, Calvert % (Auto) 4.6, Eos % (Auto) 1.7, Baso % (Auto) 0.2, Neut # (Auto) 9.3 H, Lymph # (Auto) 1.0, Calvert # (Auto) 0.5, Eos # (Auto) 0.2, Baso # (Auto) 0.0, Sodium 140, Potassium 4.0, Chloride 104, Carbon Dioxide 30, Anion Gap 10.0, BUN 10, Creatinine 1.00, Estimated GFR 76, Est GFR ( Amer) 92, Glucose 94, Calcium 8.8, Magnesium 1.9, Total Bilirubin 1.1, AST 27, ALT 33, Alkaline Phosphatase 74, Total Protein 7.3 D, Albumin 3.8, Globulin 3.5 H, Albumin/Globulin Ratio 1.1, Procalcitonin 0.092 Response Orders (Tests/Meds): ED MEDICATIONS Discontinued Medications Generic Name Dose Route Start Last Admin Trade Name Freq PRN Reason Stop Dose Admin Albuterol/Ipratropium 9 ml 09/30/23 19:23 09/30/23 20:48 Ipratropium/Albuterol 3 Ml Neb IH 09/30/23 19:24 9 ml ONCE ONE Administration Famotidine 40 mg 09/30/23 22:49 09/30/23 22:52 Famotidine 20mg Tablet PO 09/30/23 22:50 40 mg ONCE ONE Administration Lidocaine HCl 5 ml 09/30/23 21:33 09/30/23 21:46 Lidocaine 2% 5ml Pf Vial 09/30/23 21:34 5 ml ONCE ONE Administration Methylprednisolone Sodium Succinate 125 mg 09/30/23 21:44 09/30/23 21:54 Methylprednisolone Sod Succ 125mg Vial IV 09/30/23 21:45 125 mg ONCE ONE Administration Promethazine HCl 25 mg 09/30/23 21:44 09/30/23 21:50 Promethazine Hcl 25mg/Ml 1ml Vial IV 09/30/23 21:45 25 mg ONCE ONE Administration Sodium Chloride 3 ml 09/30/23 20:35 09/30/23 20:48 Sodium Chloride 3% 15ml Neb IH 10/30/23 20:34 3 ml ONCE PRN Administration INDUCE SPUTUM COLLECTION Sodium Chloride 25 ml 09/30/23 21:44 09/30/23 21:50 Sodium Chloride 0.9% 25ml Bag IV 09/30/23 21:45 25 ml ONCE ONE Administration ORDERS Category Date Time Status Chest XR 2 view (NOT portable) [XR chest 2V] Stat Exams 09/30/23 21:32 Completed CBC w/Auto Diff [Complete Blood Count Auto Diff] Stat Lab 09/30/23 20:30 Completed CMP [Comprehensive Metabolic Panel] Stat Lab 09/30/23 20:30 Completed Magnesium Stat Lab 09/30/23 20:30 Completed Procalcitonin Stat Lab 09/30/23 20:30 Completed Blood Culture Stat Micro 09/30/23 20:35 Received Sputum Culture & Gram Stain Stat Micro 09/30/23 21:02 Results VBG [Venous Blood Gas] Stat RT 09/30/23 19:25 Completed ECG Data Tracing #1: Attestation: I reviewed this ECG and interpreted as documented below: ECG Narrative: Normal sinus rhythm with a ventricular rate of [address] changes concerning for ischemia. Normal axis and intervals. ECG initial impression date: 09/30/23 ECG initial impression time: 19:45
--- NOTE | 2023-09-30 19:44 | ECG_ITS ---
APPROVED REPORT Exam: Resting ECG HR:93 bpm ECG Measurements Heart Rate 93 AXES HI 174 P 27 QRSd 76 QRS 21 QT 332 T 51 QTc 383 Conclusion SINUS RHYTHM NORMAL ECG Electronically signed by : NAKUL HIRSCH, 10/01/2023 00:48:37
--- NOTE | 2023-09-30 20:34 | PC.NURSE ---
contacted resp. informed esteban that patient needs 3 back to back breathing treatments and a green top has been sent to lab for a vbg. order placed for sputum collection as well.
[2023-09-30 20:42] LABS: Basophils % 0.2 % (0.1-2.0); Eosinophils # 0.2 K/mm3 (0.0-0.4); Eosinophils % 1.7 % (0.1-12.0); Hematocrit 39.7 % (42.0-52.0); Lymphocytes % 9.3 % (10-50); Mean Corpuscular HGB Conc 32.8 g/dL (31.8-35.4); Mean Corpuscular Hemoglobin 31.9 pg (27.0-31.2); Mean Corpuscular Volume 97.3 fl (80-94); Mean Platelet Volume 7.5 fl (7.4-10.4); Monocytes # 0.5 K/mm3 (0.1-1.0); Monocytes % 4.6 % (1.7-9.3); Neutrophils # 9.3 K/mm3 (1.8-7.8); Neutrophils % 84.1 % (37.0-80.0); Platelet Count 241 K/mm3 (142-424); Red Blood Count 4.08 M/mm3 (4.60-6.20); Red Cell Distribution Width 14.5 % (11.5-17.5); White Blood Count 11.1 K/mm3 (4.8-10.8)
[2023-09-30 20:46] LABS: Lactate Venous 1.9 mmol/L (0.4-2.0); VBG Base Excess 0.1 mmol/L (-2.4-2.3); VBG HCO3 25.5 mmol/L (23-30); VBG Oxygen Saturation 58.4 % (50-70); VBG PCO2 46.2 mmol/L (35-51); VBG PH 7.36 mmol/L (7.31-7.41); VBG PO2 32.7 mmol/L (28-40); VBG Total CO2 26.9 mmol/L (23-27)
[2023-09-30] MEDS: SODIUM CHLORIDE 3% 15ML NEB 3 ML IH (20:48)
[2023-09-30] MEDS: IPRATROPIUM/ALBUTEROL 3 ML NEB 9 ML IH (20:48)
[2023-09-30 20:55] LABS: Alanine Aminotransferase 33 U/L (12-78); Albumin Level 3.8 g/dl (3.5-5.0); Albumin/Globulin Ratio 1.1 (1.1-1.8); Alkaline Phosphatase 74 U/L (38-126); Aspartate Amino Transferase 27 U/L (17-59); Bilirubin,Total 1.1 mg/dl (0.2-1.3); Blood Urea Nitrogen 10 mg/dl (9-20); Calcium 8.8 mg/dl (8.4-10.2); Carbon Dioxide 30 mmol/L (22.0-30.0); Chloride 104 mmol/L (98-107); Estimated Glomerular Filt Rate 76 ml/min (>60); GFR (African American) 92 ML/MIN (>60); Globulin 3.5 g/dL (1.3-3.2); Glucose 94 mg/dl (74-100); Magnesium 1.9 mg/dl (1.6-2.3); Sodium 140 mmol/L (136-145); Total Protein,Serum 7.3 g/dl (6.3-8.2)
[2023-09-30 21:11] LABS: Procalcitonin 0.092 ng/mL (0.0-2.0)
--- NOTE | 2023-09-30 21:32 | XR_ITS ---
PROCEDURE INFORMATION: Exam: XR Chest Exam date and time: 09/30/2023 9:26 PM Age: 62 years old Clinical indication: Condition or disease; Other: Aspiration pneumonia TECHNIQUE: Imaging protocol: Radiologic exam of the chest. Views: 2 views. COMPARISON: CT CHEST WO CON 09/24/2023 4:28 PM FINDINGS: Lungs: Persistent bilateral interstitial opacities. Pleural spaces: Unremarkable. No pleural effusion. No pneumothorax. Heart/Mediastinum: Unremarkable. No cardiomegaly. Vasculature: Unremarkable. Bones/joints: Unremarkable. IMPRESSION: Persistent interstitial opacities. No focal alveolar consolidation
[2023-09-30 21:46] VITALS: PULSE 107; PULSE 113
[2023-09-30] MEDS: LIDOCAINE 2% 5ML PF VIAL 5 ML IH (21:46)
[2023-09-30] MEDS: SODIUM CHLORIDE 0.9% 25ML BAG 25 ML IV (21:50)
[2023-09-30] MEDS: PROMETHAZINE HCL 25MG/ML 1ML VIAL 25 MG IV (21:50)
[2023-09-30] MEDS: METHYLPREDNISOLONE SOD SUCC 125MG VIAL 125 MG IV (21:54)
[2023-09-30] MEDS: FAMOTIDINE 20MG TABLET 40 MG PO (22:52)
[2023-09-30 22:58] VITALS: BP 128/72; PULSE 82; RESP 18; TEMP 37.1; O2SAT 100
--- NOTE | 2023-10-02 09:36 | PC.NURSE ---
discussed with , contaminated, ntd
== END 2023-09-30 23:00 | disposition home or self-care (01) ==
PROVIDERS: Physician Assistant; Emergency Provider Emergency Medicine; PCP Nurse Practitioner Family
DX: R06.02 Shortness of breath (principal); J69.8 Pneumonitis due to inhalation of other solids and liquids; R05.8 Other specified cough; B95.2 Enterococcus as the cause of diseases classified elsewhere; R06.2 Wheezing; Z90.49 Acquired absence of other specified parts of digestive tract; Z85.118 Personal history of other malignant neoplasm of bronchus and lung; Z85.028 Personal history of other malignant neoplasm of stomach; J44.9 Chronic obstructive pulmonary disease, unspecified; Z87.891 Personal history of nicotine dependence
CPT/HCPCS: 71046; 80053; 82803; 83735; 84145; 85025; 87040; 87070; 87077; 87186; 87205; 93005; 96374; 96375; 99284; J2550; J2919; J7620